=== PATIENT | female | born 1965 | race Caucasian/White ===

== ENCOUNTER 2016-11-10 18:29 | Emergency (ER) | payer MEDICARE ==
[2016-11-10] MEDS ORDERED: Metoclopramide IV* 5 MG/ML 2 ML VIAL IV ONE (19:20)
[2016-11-10] MEDS ORDERED: Ketorolac INJ* 30 MG/ML 1 ML VIAL IV ONE (19:20)
[2016-11-10] MEDS ORDERED: NS 0.9% 1000 ML* 1,000 ML IV ONE (19:20)
[2016-11-10] MEDS ORDERED: diPHENhydraMINE IV* 50 MG/ML 1 ml VIAL (BENADRYL) IV ONE (19:20)
[2016-11-10 19:30] LABS: Urine Bilirubin Negative (Negative); Urine Glucose Negative (Negative); Urine Nitrite Negative (Negative)
--- NOTE | 2016-11-10 19:47 | RAD ---
HISTORY: Headache COMPARISONS: September 25, 2015 TECHNIQUE: Multiple contiguous axial CT scans were obtained of the head without intravenous contrast. FINDINGS: HEMORRHAGE/INFARCT: There is no hemorrhage or acute infarct. MASSES/SHIFT: There is no mass or shift. EXTRA-AXIAL SPACES: There are no extra-axial fluid collections. SULCI AND VENTRICLES: The sulci and ventricles are normal in size and position for the patient's stated age. CEREBRUM: There is a dilated perivascular space of the left basal ganglia, stable. BRAINSTEM: There are no focal parenchymal abnormalities. CEREBELLUM: There are no focal parenchymal abnormalities. VESSELS: The vessels are grossly normal. PARANASAL SINUSES: The paranasal sinuses are clear. ORBITS: The orbits are unremarkable. BONES AND SOFT TISSUE: No bone or soft tissue abnormalities are noted. OTHER: None IMPRESSION: NO ACUTE INTRACRANIAL PATHOLOGY.
[2016-11-10 21:00] LABS: Hematocrit 43 % (35-47); Mean Corpuscular HGB Conc 33 g/dl (31-36); Mean Corpuscular Hemoglobin 27 pg (27-31); Mean Corpuscular Volume 82 fL (80-97); Mean Platelet Volume 9 um3 (7.4-10.4); Red Cell Distribution Width 15 % (10.5-15)
[2016-11-10 21:13] LABS: ALT 26 U/L (7-52); Albumin 3.9 g/dL (3.2-5.2); Alkaline Phosphatase 111 U/L (34-104); BUN/Creatinine Ratio 14.3 (8-20); Blood Urea Nitrogen 12 mg/dL (6-24); CO2 Carbon Dioxide 26 mmol/L (22-32); Calcium 9.4 mg/dL (8.6-10.3); Chloride 104 mmol/L (101-111); EGFR African American 91.6 (>60); EGFR Non-African American 71.2 (>60); Globulin 3.4 g/dL (2-4); Glucose 112 mg/dL (70-100); Sodium 137 mmol/L (133-145); Total Protein 7.3 g/dL (6.4-8.9)
[2016-11-10] MEDS ORDERED: Nalbuphine* 20 MG/ML 1 ML VIAL IV ONE (21:43)
[2016-11-10] MEDS ORDERED: Morphine INJ* 4 MG/ML 1 ML CARPUJECT IV ONE (21:45)
[2016-11-10 23:40] VITALS: BP 109/42
--- NOTE | 2016-11-10 23:44 | ED ---
José Miguel Benítez Billy, scribed for Darrion Ugalde MD on 11/10/16 at 1923 . Headache - HPI Summary HPI Summary: Patient is a 51 year-old female coming to [facility] presenting with a migraine headache since 1600 today. She states that her pain is very similar to previous migraines headaches, although today's episode also involves right-sided throbbing on the right side including pain behind the right eye. Positive nausea and vomiting. She denies blurred vision, neck pain, or fever. Symptoms are worse with lights and movement. Patient had eyelid surgery 1 week ago to remove excess eyelid skin. - History Of Current Complaint Chief Complaint: EDHeadache Stated Complaint: MIGRAINE Time Seen by Provider: 11/10/16 19:16 Hx Obtained From: Patient Hx Last Menstrual Period: IUD - NO PERIODS Onset/Duration: Gradual Onset, Started hours ago, Still Present Initially Headache Was: Moderate Currently Pain Is: Moderate Timing: Constant Character: Throbbing Aggravating Factor: Bright Lights, Other - movement Allevating Factors: Nothing Associated Signs And Symptoms: Nausea, Vomiting - Allergies/Home Medications Allergies/Adverse Reactions: Allergies Allergy/AdvReac Type Severity Reaction Status Date / Time Heparin Allergy Severe Swelling Verified 11/10/16 18:36 Hydromorphone [From Dilaudid] Allergy Severe Rash Verified 11/10/16 18:36 Fentanyl Allergy Rash Verified 11/10/16 20:20 Piperacillin [From Zosyn] AdvReac Severe Decreased Verified 11/10/16 18:36 WBC Sumatriptan [From Imitrex] AdvReac Severe Heart races Verified 11/10/16 18:36 Tazobactam [From Zosyn] AdvReac Severe Decreased Verified 11/10/16 18:36 WBC Morphine AdvReac Intermediate Itching Verified 11/10/16 18:36 Clindamycin AdvReac See Comment Verified 11/10/16 18:36 PMH/Surg Hx/FS Hx/Imm Hx Endocrine/Hematology History: Reports: Hx Diabetes Denies: Hx Anticoagulant Therapy, Hx Thyroid Disease Cardiovascular History: Reports: Hx Hypertension Denies: Hx Pacemaker/ICD Respiratory History: Denies: Hx Asthma, Hx Chronic Obstructive Pulmonary Disease (COPD), Other Respiratory Problems/Disorders GI History: Reports: Hx Crohn's Disease, Hx Gastroesophageal Reflux Disease Denies: Hx Ulcer Musculoskeletal History: Reports: Hx Arthritis - LOWER BACK Sensory History: Reports: Hx Contacts or Glasses Denies: Hx Hearing Aid Opthamlomology History: Reports: Hx Contacts or Glasses Psychiatric History: Reports: Hx Anxiety, Hx Depression Denies: Hx Panic Disorder, Hx of Violent Episodes Against Others - Cancer History Hx Chemotherapy: No Hx Radiation Therapy: No - Surgical History Surgery Procedure, Year, and Place: Appendectomy,. left foot tendon repair,. Gallbladder,. hernia repair,. bilateral carpal tunnel,. tonsilectomy,. Tendon repair L foot , Hx Anesthesia Reactions: No Infectious Disease History: No Infectious Disease History: Reports: Hx Shingles - 2014 Denies: Hx Clostridium Difficile, Hx Hepatitis, Hx Human Immunodeficiency Virus (HIV), Hx of Known/Suspected MRSA, Hx Tuberculosis, Hx Known/Suspected VRE , Hx Known/Suspected VRSA, History Other Infectious Disease, Traveled Outside the [place] in Last 30 Days - Family History Known Family History: Positive: Cardiac Disease, Hypertension, Diabetes - Social History Alcohol Use: None Hx Substance Use: No Substance Use Type: Reports: None Hx Tobacco Use: No Smoking Status (MU): Never Smoked Tobacco Review of Systems Negative: Fever Negative: Blurred Vision Positive: Vomiting, Nausea Positive: Headache All Other Systems Reviewed And Are Negative: Yes Physical Exam - Summary Physical Exam Summary: VITAL SIGNS: Reviewed. GENERAL: Patient is a well developed and nourished female who is lying comfortable in the stretcher. Patient is not in any acute respiratory distress. HEAD AND FACE: No signs of trauma. No ecchymosis, hematomas or skull depressions. No sinus tenderness. EYES: PERRLA, EOMI x 2, No injected conjunctiva, no nystagmus. No photophobia. EARS: Hearing grossly intact. Ear canals and tympanic membranes are within normal limits. MOUTH: Oropharynx within normal limits. NECK: Supple, trachea is midline, no adenopathy, no JVD, no carotid bruit, no c- spine tenderness, neck with full ROM. No meningeal signs, no Kernig's or brudzinskis signs. CHEST: Symmetric, no tenderness at palpation LUNGS: Clear to auscultation bilaterally. No wheezing or crackles. CVS: Regular rate and rhythm, S1 and S2 present, no murmurs or gallops appreciated. ABDOMEN: Soft, non-tender. No signs of distention. No rebound no guarding, and no masses palpated. Bowel sounds are normal. EXTREMITIES: FROM in all major joints, no edema, no cyanosis or clubbing. NEURO: Alert and oriented x 3. No acute neurological deficits. Speech is normal and follows commands. SKIN: Dry and warm Triage Information Reviewed: Yes Vital Signs On Initial Exam: Initial Vitals Temp Pulse Resp BP Pulse Ox 96.7 F 85 18 140/76 100 11/10/16 18:30 11/10/16 18:30 11/10/16 18:30 11/10/16 18:30 11/10/16 18:30 Vital Signs Reviewed: Yes Diagnostics - Vital Signs Vital Signs Temp Pulse Resp BP Pulse Ox 11/10/16 18:30 96.7 F 85 18 140/76 100 - Laboratory Lab Results: Lab Results 11/10/16 11/10/16 11/10/16 Range/Units 19:12 20:50 20:50 WBC 11.0 H (3.5-10.8) 10^3/ul RBC 5.20 (4.0-5.4) 10^6/ul Hgb 14.0 (12.0-16.0) g/dl Hct 43 (35-47) % MCV 82 (80-97) fL MCH 27 (27-31) pg MCHC 33 (31-36) g/dl RDW 15 (10.5-15) % Plt Count 329 (150-450) 10^3/ul MPV 9 (7.4-10.4) um3 Neut % (Auto) 55.0 (38-83) % Lymph % (Auto) 33.2 (25-47) % Moody % (Auto) 7.2 (1-9) % Eos % (Auto) 3.8 (0-6) % Baso % (Auto) 0.8 (0-2) % Absolute Neuts (auto) 6.0 (1.5-7.7) 10^3/ul Absolute Lymphs (auto) 3.6 (1.0-4.8) 10^3/ul Absolute Monos (auto) 0.8 (0-0.8) 10^3/ul Absolute Eos (auto) 0.4 (0-0.6) 10^3/ul Absolute Basos (auto) 0.1 (0-0.2) 10^3/ul Absolute Nucleated RBC 0.01 10^3/ul Nucleated RBC % 0.1 Sodium 137 (133-145) mmol/L Potassium TNP Chloride 104 (101-111) mmol/L Carbon Dioxide 26 (22-32) mmol/L Anion Gap TNP BUN 12 (6-24) mg/dL Creatinine 0.84 (0.51-0.95) mg/dL Est GFR ( Amer) 91.6 (>60) Est GFR (Non-Af Amer) 71.2 (>60) BUN/Creatinine Ratio 14.3 (8-20) Glucose 112 H (70-100) mg/dL Calcium 9.4 (8.6-10.3) mg/dL Total Bilirubin 0.30 (0.2-1.0) mg/dL AST TNP ALT 26 (7-52) U/L Alkaline Phosphatase 111 H (34-104) U/L Total Protein 7.3 (6.4-8.9) g/dL Albumin 3.9 (3.2-5.2) g/dL Globulin 3.4 (2-4) g/dL Albumin/Globulin Ratio 1.1 (1-3) Urine Color Yellow Urine Appearance Clear Urine pH 5.0 (5-9) Ur Specific [place] 1.015 (1.010-1.030) Urine Protein Negative (Negative) Urine Ketones Negative (Negative) Urine Blood Negative (Negative) Urine Nitrate Negative (Negative) Urine Bilirubin Negative (Negative) Urine Urobilinogen Negative (Negative) Ur Leukocyte Esterase Negative (Negative) Urine Glucose Negative (Negative) Result Diagrams: 11/10/16 20:50 11/10/16 20:50 Lab Statement: Any lab studies that have been ordered have been reviewed, and results considered in the medical decision making process. - CT brain CT Interpretation: No Acute Changes CT Interpretation Completed By: Radiologist Headache Course/Dx - Course Assessment/Plan: Patient is a 51 year-old female coming to [facility] presenting with a migraine headache since 1600 today. She states that her pain is very similar to previous migraines headaches, although today's episode also involves right-sided throbbing on the right side including pain behind the right eye. Positive nausea and vomiting. She denies blurred vision, neck pain, or fever. Symptoms are worse with lights and movement. Patient had eyelid surgery 1 week ago to remove excess eyelid skin. Bloodwork WNL except for WBC of 11.0. UA is negative for UTI. CT brain shows no intracranial pathology. In the ED course, patient was give IV fluids, Toradol, Reglan, Benadryl, nuBain, and morphine for pain. Afterwards, her symptoms improved. Patient is neurologically intact, therefore she will be discharged to follow up with PCP. She is A&Ox3, ambulating with steady gait, and tolerating PO. She was instructed to return to the ED with any developing fever, neck pain, photophobia, or increase in pain. She understands and agrees. - Diagnoses Differential Diagnosis/HQI/PQRI: CVA, TIA, Migraine, Sinus Headache, Temporal Arteritis, Tension Headache Provider Diagnoses: acute migraine headache Discharge - Discharge Plan Condition: Stable Disposition: HOME Patient Education Materials: Migraine Headache (ED) Referrals: Heath Reyes MD [Primary Care Provider] - The documentation as recorded by the José Miguel quiñonez Billy accurately reflects the service I personally performed and the decisions made by , Darrion Ugalde MD.
== END 2016-11-10 23:39 | disposition home or self-care (01) ==
LOC: ED 18:29
DX: G43.909 Migraine, unspecified, not intractable, without status migrainosus (principal); R11.2 Nausea with vomiting, unspecified
CPT/HCPCS: 36415; 70450; 80053; 81003; 85025; 96374; 96375; 99285; J1200; J1885; J2300; J2765

== ENCOUNTER 2016-11-15 17:42 | Emergency (ER) | payer MEDICARE ==
[2016-11-15] MEDS ORDERED: Morphine INJ* 4 MG/ML 1 ML CARPUJECT IV ONE ×3 (18:13→21:45)
[2016-11-15] MEDS ORDERED: NS 0.9% 1000 ML* 2,000 ML IV ONE (18:13)
[2016-11-15] MEDS ORDERED: Ondansetron INJ* 2 MG/ML VIAL IV ONE (18:13)
[2016-11-15 19:10] LABS: Hematocrit 41 % (35-47); Hemoglobin 13.3 g/dl (12.0-16.0); Mean Corpuscular HGB Conc 33 g/dl (31-36); Mean Corpuscular Hemoglobin 27 pg (27-31); Mean Corpuscular Volume 82 fL (80-97); Mean Platelet Volume 9 um3 (7.4-10.4); Red Blood Count 4.95 10^6/ul (4.0-5.4); Red Cell Distribution Width 14 % (10.5-15); White Blood Count 11.1 10^3/ul (3.5-10.8)
[2016-11-15 19:24] LABS: Albumin 4.3 g/dL (3.2-5.2); BUN/Creatinine Ratio 16.7 (8-20); C Reactive Protein 7.22 mg/L (< 5.00); EGFR African American 91.6 (>60); EGFR Non-African American 71.2 (>60); Globulin 3.3 g/dL (2-4); Potassium 3.6 mmol/L (3.5-5.0); Total Bilirubin 0.2 mg/dL (0.2-1.0); Total Protein 7.6 g/dL (6.4-8.9)
[2016-11-15] MEDS ORDERED: Iodixanol* (CONTRAST) 320 MG/ML 100 ML SDV IV ONE (19:45)
--- NOTE | 2016-11-15 21:11 | RAD ---
INDICATION: Right-sided abdominal pain COMPARISON: CT July 29, 2016 TECHNIQUE: Axial source images were obtained from the hemidiaphragms to the symphysis pubis following administration of oral and intravenous contrast. 111 mL Visipaque 320 was utilized. Coronal and sagittal reconstructed images were acquired. Lung bases: The lung bases are clear. Liver: The liver is normal in size. There is hepatic steatosis. There are no masses. There is no ductal dilatation. Gallbladder: Cholecystectomy. Spleen: The spleen is normal in size. There are no masses. Pancreas: There is no focal pancreatic mass or ductal dilatation. Adrenal glands: There is no evidence of adrenal mass. Kidneys: The kidneys are normal in size and position. There are prompt nephrograms and there is prompt excretion bilaterally. There are no renal parenchymal masses. There is a 6 mm, nonobstructive, midpole left renal calculus, unchanged Adenopathy: There is no evidence of adenopathy by size criteria. Fluid collections: There are no free or localized fluid collections. Vessels:There are no significant atherosclerotic changes involving the aorta. There is no focal aneurysm. The iliac vessels are normal in caliber. The IVC appears normal. GI tract: There are no acute CT bowel findings. There is no obstruction. The stomach and small bowel appear normal. The lower GI tract is normal. The cecum, ileocecal valve, and terminal ileum appear normal. There is appendectomy. Pelvic organs: The uterus and adnexa appear normal. There is an IUD in place Bladder: There is bladder wall thickening, unchanged.. Abdominal and pelvic soft tissues: There are are subcutaneous soft tissue changes in the gluteal regions perhaps related to prior subcutaneous injections. Osseous structures: There are no acute osseous findings. Other: None IMPRESSION: 1. No acute CT findings. No mass or inflammatory changes. 2. Hepatic steatosis 3. Cholecystectomy. Appendectomy. 4. IUD. 5. Bladder wall thickening, unchanged
[2016-11-15 21:35] LABS: Urine Bilirubin Negative (Negative); Urine Glucose Negative (Negative); Urine Nitrite Negative (Negative)
[2016-11-15] MEDS ORDERED: oxyCODONE TAB* 5 MG TAB PO ONE (21:45)
--- NOTE | 2016-11-15 21:51 | ED ---
Wil Benítez Janilya, scribed for Aniceto Collins MD on 11/15/16 at 1755 . Abdominal Pain/Female - HPI Summary HPI Summary: A 51 y/o female came in [place] [facility] presenting w/ a gradual onset of constant RLQ pain starting today at approx 1300 or 1400. Severity rated 9/10. Pain does not radiate to the back. Pt has baseline abd pain of 3/10 severity. Pt is usually on morphine for pain management of 30 mg twice a day. However, the morphine has not brought any alleviation to the exacerbation of this baseline abd pain. Pt states she has had similar worsening of her abd pain before. Pt reports nausea and runny stool for the past 3 days. However, pt also has PMHx of Crohns disease , and the runny stool might be due to flare ups. There is also change in appetite today. Pt denies fever, dysuria. PMHx kidney stone PSHx hernia, appendectomy, gallbladder removal. - History of Current Complaint Chief Complaint: EDAbdPain Stated Complaint: ABD PAIN Hx Obtained From: Patient Hx Last Menstrual Period: IUD - NO PERIODS Onset/Duration: Gradual Onset, Lasting Hours, Still Present Timing: Constant Severity Initially: Moderate Severity Currently: Moderate Pain Intensity: 9 Pain Scale Used: 0-10 Numeric Location: Discrete At: RLQ Radiates: No Aggravating Factor(s): Nothing Alleviating Factor(s): Nothing Associated Signs and Symptoms: Positive: Nausea, Other: - runny stool. Negative : Fever, Urinary Symptoms Allergies/Adverse Reactions: Allergies Allergy/AdvReac Type Severity Reaction Status Date / Time Heparin Allergy Severe Swelling Verified 11/15/16 17:46 Hydromorphone [From Dilaudid] Allergy Severe Rash Verified 11/15/16 17:46 Fentanyl Allergy Rash Verified 11/15/16 17:46 Piperacillin [From Zosyn] AdvReac Severe Decreased Verified 11/15/16 17:46 WBC Sumatriptan [From Imitrex] AdvReac Severe Heart races Verified 11/15/16 17:46 Tazobactam [From Zosyn] AdvReac Severe Decreased Verified 11/15/16 17:46 WBC Morphine AdvReac Intermediate Itching Verified 11/15/16 17:46 Clindamycin AdvReac See Comment Verified 11/15/16 17:46 PMH/Surg Hx/FS Hx/Imm Hx Previously Healthy: Yes Endocrine/Hematology History: Reports: Hx Diabetes Denies: Hx Anticoagulant Therapy, Hx Thyroid Disease Cardiovascular History: Reports: Hx Hypertension Denies: Hx Pacemaker/ICD Respiratory History: Denies: Hx Asthma, Hx Chronic Obstructive Pulmonary Disease (COPD), Other Respiratory Problems/Disorders GI History: Reports: Hx Crohn's Disease, Hx Gastroesophageal Reflux Disease Denies: Hx Ulcer Musculoskeletal History: Reports: Hx Arthritis - LOWER BACK Sensory History: Reports: Hx Contacts or Glasses Denies: Hx Hearing Aid Opthamlomology History: Reports: Hx Contacts or Glasses Psychiatric History: Reports: Hx Anxiety, Hx Depression Denies: Hx Panic Disorder, Hx of Violent Episodes Against Others - Cancer History Hx Chemotherapy: No Hx Radiation Therapy: No - Surgical History Surgery Procedure, Year, and Place: Appendectomy,. left foot tendon repair,. Gallbladder,. hernia repair,. bilateral carpal tunnel,. tonsilectomy,. Tendon repair L foot , Hx Anesthesia Reactions: No Infectious Disease History: No Infectious Disease History: Reports: Hx Shingles - 2014 Denies: Hx Clostridium Difficile, Hx Hepatitis, Hx Human Immunodeficiency Virus (HIV), Hx of Known/Suspected MRSA, Hx Tuberculosis, Hx Known/Suspected VRE , Hx Known/Suspected VRSA, History Other Infectious Disease, Traveled Outside the [place] in Last 30 Days - Family History Known Family History: Positive: Cardiac Disease, Hypertension, Diabetes - Social History Alcohol Use: None Hx Substance Use: No Substance Use Type: Reports: None Hx Tobacco Use: No Smoking Status (MU): Never Smoked Tobacco Review of Systems Negative: Fever Positive: Abdominal Pain, Nausea, Other - runny stool Negative: dysuria All Other Systems Reviewed And Are Negative: Yes Physical Exam Triage Information Reviewed: Yes Vital Signs On Initial Exam: Initial Vitals Temp Pulse Resp BP Pulse Ox 97.3 F 106 16 143/73 100 11/15/16 17:46 11/15/16 17:46 11/15/16 17:46 11/15/16 17:46 11/15/16 17:46 Vital Signs Reviewed: Yes Appearance: Positive: Well-Appearing, No Pain Distress Skin: Positive: Warm, Skin Color Reflects Adequate Perfusion, Dry Head/Face: Positive: Normal Head/Face Inspection Eyes: Positive: EOMI, JAIME ENT: Positive: Normal ENT inspection Neck: Positive: Supple, Nontender Respiratory/Lung Sounds: Positive: Clear to Auscultation, Breath Sounds Present Cardiovascular: Positive: RRR Abdomen Description: Positive: Soft. Negative: Nontender - mild to moderate abd pain, tenderness in RLQ Bowel Sounds: Positive: Hypoactive Musculoskeletal: Positive: Normal, Strength/ROM Intact Neurological: Positive: Normal, Sensory/Motor Intact, Alert, Oriented to Person Place, Time Psychiatric: Positive: Affect/Mood Appropriate Diagnostics - Vital Signs Vital Signs Temp Pulse Resp BP Pulse Ox 11/15/16 17:46 97.3 F 106 16 143/73 100 - Laboratory Lab Results: Lab Results 11/15/16 11/15/16 11/15/16 Range/Units 18:55 18:55 18:55 WBC 11.1 H (3.5-10.8) 10^3/ul RBC 4.95 (4.0-5.4) 10^6/ul Hgb 13.3 (12.0-16.0) g/dl Hct 41 (35-47) % MCV 82 (80-97) fL MCH 27 (27-31) pg MCHC 33 (31-36) g/dl RDW 14 (10.5-15) % Plt Count 293 (150-450) 10^3/ul MPV 9 (7.4-10.4) um3 Neut % (Auto) 56.4 (38-83) % Lymph % (Auto) 32.2 (25-47) % Peach % (Auto) 6.4 (1-9) % Eos % (Auto) 3.8 (0-6) % Baso % (Auto) 1.2 (0-2) % Absolute Neuts (auto) 6.3 (1.5-7.7) 10^3/ul Absolute Lymphs (auto) 3.6 (1.0-4.8) 10^3/ul Absolute Monos (auto) 0.7 (0-0.8) 10^3/ul Absolute Eos (auto) 0.4 (0-0.6) 10^3/ul Absolute Basos (auto) 0.1 (0-0.2) 10^3/ul Absolute Nucleated RBC 0 10^3/ul Nucleated RBC % 0 INR (Anticoag Therapy) 0.86 L (0.89-1.11) APTT 28.5 (26.0-36.3) seconds Sodium 137 (133-145) mmol/L Potassium 3.6 (3.5-5.0) mmol/L Chloride 104 (101-111) mmol/L Carbon Dioxide 25 (22-32) mmol/L Anion Gap 8 (2-11) mmol/L BUN 14 (6-24) mg/dL Creatinine 0.84 (0.51-0.95) mg/dL Est GFR ( Amer) 91.6 (>60) Est GFR (Non-Af Amer) 71.2 (>60) BUN/Creatinine Ratio 16.7 (8-20) Glucose 110 H (70-100) mg/dL Lactic Acid (0.5-2.0) mmol/L Calcium 10.0 (8.6-10.3) mg/dL Total Bilirubin 0.20 (0.2-1.0) mg/dL AST 17 (13-39) U/L ALT 20 (7-52) U/L Alkaline Phosphatase 111 H (34-104) U/L C-Reactive Protein 7.22 H (< 5.00) mg/L Total Protein 7.6 (6.4-8.9) g/dL Albumin 4.3 (3.2-5.2) g/dL Globulin 3.3 (2-4) g/dL Albumin/Globulin Ratio 1.3 (1-3) Lipase 82 (11.0-82.0) U/L Urine Color Urine Appearance Urine pH (5-9) Ur Specific [place] (1.010-1.030) Urine Protein (Negative) Urine Ketones (Negative) Urine Blood (Negative) Urine Nitrate (Negative) Urine Bilirubin (Negative) Urine Urobilinogen (Negative) Ur Leukocyte Esterase (Negative) Urine Glucose (Negative) 11/15/16 11/15/16 Range/Units 18:55 21:25 WBC (3.5-10.8) 10^3/ul RBC (4.0-5.4) 10^6/ul Hgb (12.0-16.0) g/dl Hct (35-47) % MCV (80-97) fL MCH (27-31) pg MCHC (31-36) g/dl RDW (10.5-15) % Plt Count (150-450) 10^3/ul MPV (7.4-10.4) um3 Neut % (Auto) (38-83) % Lymph % (Auto) (25-47) % Peach % (Auto) (1-9) % Eos % (Auto) (0-6) % Baso % (Auto) (0-2) % Absolute Neuts (auto) (1.5-7.7) 10^3/ul Absolute Lymphs (auto) (1.0-4.8) 10^3/ul Absolute Monos (auto) (0-0.8) 10^3/ul Absolute Eos (auto) (0-0.6) 10^3/ul Absolute Basos (auto) (0-0.2) 10^3/ul Absolute Nucleated RBC 10^3/ul Nucleated RBC % INR (Anticoag Therapy) (0.89-1.11) APTT (26.0-36.3) seconds Sodium (133-145) mmol/L Potassium (3.5-5.0) mmol/L Chloride (101-111) mmol/L Carbon Dioxide (22-32) mmol/L Anion Gap (2-11) mmol/L BUN (6-24) mg/dL Creatinine (0.51-0.95) mg/dL Est GFR ( Amer) (>60) Est GFR (Non-Af Amer) (>60) BUN/Creatinine Ratio (8-20) Glucose (70-100) mg/dL Lactic Acid 1.3 (0.5-2.0) mmol/L Calcium (8.6-10.3) mg/dL Total Bilirubin (0.2-1.0) mg/dL AST (13-39) U/L ALT (7-52) U/L Alkaline Phosphatase (34-104) U/L C-Reactive Protein (< 5.00) mg/L Total Protein (6.4-8.9) g/dL Albumin (3.2-5.2) g/dL Globulin (2-4) g/dL Albumin/Globulin Ratio (1-3) Lipase (11.0-82.0) U/L Urine Color Colorless Urine Appearance Clear Urine pH 5.0 (5-9) Ur Specific [place] 1.003 L (1.010-1.030) Urine Protein Negative (Negative) Urine Ketones Negative (Negative) Urine Blood Negative (Negative) Urine Nitrate Negative (Negative) Urine Bilirubin Negative (Negative) Urine Urobilinogen Negative (Negative) Ur Leukocyte Esterase Negative (Negative) Urine Glucose Negative (Negative) Result Diagrams: 11/15/16 18:55 11/15/16 18:55 Lab Statement: Any lab studies that have been ordered have been reviewed, and results considered in the medical decision making process. - CT abd/pel CT Interpretation: Positive (See Comments) - IMPRESSION: 1. No acute CT findings. No mass or inflammatory changes. 2. Hepatic steatosis 3. Cholecystectomy. Appendectomy. 4. IUD. 5. Bladder wall thickening, unchanged CT Interpretation Completed By: Radiologist Abdominal Pain Fem Course/Dx - Course Course Of Treatment: DISCUSSED RESULTS WITH PATIENT. THIS PAIN IS SIMILAR TO HER CHRONIC RECURRENT ABD PAIN. RX OXYCODONE AND F/U WITH HER DOCTOR TOMORROW. RETURN IF WORSE. DISCHARGE HOME STABLE. - Diagnoses Provider Diagnoses: Abdominal pain Discharge - Discharge Plan Condition: Stable Disposition: HOME Prescriptions: oxyCODONE TAB* [Roxycodone TAB 5 mg*] 5 mg PO Q4H PRN #20 tab MDD 6 PRN Reason: Pain Patient Education Materials: Abdominal Pain (ED) Referrals: Heath Reyes MD [Primary Care Provider] - Additional Instructions: FOLLOW UP WITH YOUR DOCTOR TOMORROW, 11/16/16. RETURN TO THE EMERGENCY DEPARTMENT FOR ANY WORSENING OF YOUR CONDITION; PAIN, FEVER, YOU FEEL ILL OR QUESTIONS OR CONCERNS. The documentation as recorded by the Wil quiñonez Janilya accurately reflects the service I personally performed and the decisions made by me, Aniceto Collins MD.
[2016-11-15 22:12] VITALS: BP 137/61
== END 2016-11-15 21:58 | disposition home or self-care (01) ==
LOC: ED 17:42
DX: R10.31 Right lower quadrant pain (principal); R11.0 Nausea
CPT/HCPCS: 36415; 74177; 80053; 81003; 83605; 83690; 85025; 85610; 85730; 86140; 96374; 96375; 99283; A9270-GY; J2270; J2405; Q9967

== ENCOUNTER 2017-01-06 17:28 | Emergency (ER) | payer MEDICARE ==
[2017-01-06] MEDS ORDERED: Metoclopramide IV* 5 MG/ML 2 ML VIAL IV ONE (19:46)
[2017-01-06] MEDS ORDERED: Ketorolac INJ* 30 MG/ML 1 ML VIAL IV ONE (19:46)
[2017-01-06] MEDS ORDERED: diPHENhydraMINE IV* 50 MG/ML 1 ml VIAL (BENADRYL) IV ONE (19:46)
[2017-01-06] MEDS ORDERED: NS 0.9% 1000 ML* 1,000 ML IV ONE (19:46)
--- NOTE | 2017-01-06 20:06 | ED ---
Earnest Benítez Anna, scribed for Wojciech Caro MD on 01/06/17 at 1951 . Headache - HPI Summary HPI Summary: Patient is a 51 y/o female coming to [facility] presenting with a constant DEVLIN that began yesterday. She describes the severity of the pain as 10/10. She took Oxycodone yesterday and Tylenol today, which did not alleviate the pain. The pain is exacerbated by light. Her mother yesterday, and she reports having lots of stress as a result. She has not been eating normally and has felt intermittently nauseous. She reports that when she has a migraine, she often ends up in the ED. Her most recent visit for a migraine was 11/10/2016. At that time, she was given IV fluids, Toradol, Reglan, Benadryl, nuBain, and morphine for pain, which improved her symptoms. - History Of Current Complaint Chief Complaint: EDHeadache Stated Complaint: MIGRAINE Time Seen by Provider: 01/06/17 19:41 Hx Obtained From: Patient, Family/Manager Paid - Accompanied by family Hx Last Menstrual Period: IUD - NO PERIODS Onset/Duration: Started days ago, Still Present Initially Headache Was: Moderate Currently Pain Is: Moderate Timing: Constant Allevating Factors: Nothing - Allergies/Home Medications Allergies/Adverse Reactions: Allergies Allergy/AdvReac Type Severity Reaction Status Date / Time Heparin Allergy Severe Swelling Verified 01/06/17 17:42 Hydromorphone [From Dilaudid] Allergy Severe Rash Verified 01/06/17 17:42 Fentanyl Allergy Rash Verified 01/06/17 17:42 Piperacillin [From Zosyn] AdvReac Severe Decreased Verified 01/06/17 17:42 WBC Sumatriptan [From Imitrex] AdvReac Severe Heart races Verified 01/06/17 17:42 Tazobactam [From Zosyn] AdvReac Severe Decreased Verified 01/06/17 17:42 WBC Morphine AdvReac Intermediate Itching Verified 01/06/17 17:42 Clindamycin AdvReac See Comment Verified 01/06/17 17:42 PMH/Surg Hx/FS Hx/Imm Hx Endocrine/Hematology History: Reports: Hx Diabetes Denies: Hx Anticoagulant Therapy, Hx Thyroid Disease Cardiovascular History: Reports: Hx Hypertension Denies: Hx Pacemaker/ICD Respiratory History: Denies: Hx Asthma, Hx Chronic Obstructive Pulmonary Disease (COPD), Other Respiratory Problems/Disorders GI History: Reports: Hx Crohn's Disease, Hx Gastroesophageal Reflux Disease Denies: Hx Ulcer Musculoskeletal History: Reports: Hx Arthritis - LOWER BACK Sensory History: Reports: Hx Contacts or Glasses Denies: Hx Hearing Aid Opthamlomology History: Reports: Hx Contacts or Glasses Psychiatric History: Reports: Hx Anxiety, Hx Depression Denies: Hx Panic Disorder, Hx of Violent Episodes Against Others - Cancer History Hx Chemotherapy: No Hx Radiation Therapy: No - Surgical History Surgery Procedure, Year, and Place: Appendectomy,. left foot tendon repair,. Gallbladder,. hernia repair,. bilateral carpal tunnel,. tonsilectomy,. Tendon repair L foot , Hx Anesthesia Reactions: No Infectious Disease History: No Infectious Disease History: Reports: Hx Shingles - 2014 Denies: Hx Clostridium Difficile, Hx Hepatitis, Hx Human Immunodeficiency Virus (HIV), Hx of Known/Suspected MRSA, Hx Tuberculosis, Hx Known/Suspected VRE , Hx Known/Suspected VRSA, History Other Infectious Disease, Traveled Outside the [place] in Last 30 Days - Family History Known Family History: Positive: Cardiac Disease, Hypertension, Diabetes - Social History Alcohol Use: Rare Hx Substance Use: No Substance Use Type: Reports: None Hx Tobacco Use: No Smoking Status (MU): Never Smoked Tobacco Review of Systems Positive: Photophobia Positive: Nausea Positive: Headache Psychological: Other - Stress All Other Systems Reviewed And Are Negative: Yes Physical Exam Triage Information Reviewed: Yes Vital Signs On Initial Exam: Initial Vitals Temp Pulse Resp BP Pulse Ox 98.5 F 108 17 156/78 98 01/06/17 17:39 01/06/17 17:39 01/06/17 17:39 01/06/17 17:39 01/06/17 17:39 Vital Signs Reviewed: Yes Appearance: Positive: Well-Appearing, Pain Distress - mild discomfort Skin: Positive: Warm Head/Face: Positive: Normal Head/Face Inspection Eyes: Positive: EOMI, JAIME, Conjunctiva Clear ENT: Positive: Hearing grossly normal Neck: Positive: Supple Respiratory/Lung Sounds: Positive: Clear to Auscultation, Breath Sounds Present Cardiovascular: Positive: RRR Abdomen Description: Positive: Nontender, Soft Bowel Sounds: Positive: Present Musculoskeletal: Positive: Strength/ROM Intact Neurological: Positive: Sensory/Motor Intact, Alert, Oriented to Person Place, Time, CN Intact II-III, Normal Gait Psychiatric: Positive: Affect/Mood Appropriate Diagnostics - Vital Signs Vital Signs Temp Pulse Resp BP Pulse Ox 01/06/17 18:50 98.4 F 103 17 140/77 100 01/06/17 17:42 98.5 F 108 17 156/78 98 01/06/17 17:39 98.5 F 108 17 156/78 98 - Laboratory Result Diagrams: 01/06/17 20:35 01/06/17 20:35 Lab Statement: Any lab studies that have been ordered have been reviewed, and results considered in the medical decision making process. Re-Evaluation - Re-Evaluation First Eval Change: Improved Headache Course/Dx - Course Assessment/Plan: Patient is a 51 y/o female coming to [facility] presenting with a constant DEVLIN that began yesterday. She describes the severity of the pain as 10/ 10. She took Oxycodone yesterday and Tylenol today, which did not alleviate the pain. The pain is exacerbated by light. Her mother yesterday, and she reports having lots of stress as a result. She has not been eating normally and has felt intermittently nauseous. She reports that when she has a migraine, she often ends up in the ED. Her most recent visit for a migraine was 2016. At that time, she was given IV fluids, Toradol, Reglan, Benadryl, nuBain, and morphine for pain, which improved her symptoms. Today, in the ED course, the patient was given fluids, Toradol, Reglan, and Benadryl. Patients pain was not alleviated. She then received Morphine. Labs reveal WBC of 15.9, RDW of 16, and glucose of 125. Patient will be discharged with follow up from primary care physician. Patient is agreeable with plan. - Diagnoses Provider Diagnoses: Migraine Discharge - Discharge Plan Condition: Stable Disposition: HOME Patient Education Materials: Migraine Headache (ED) Referrals: Heath Reyes MD [Primary Care Provider] - Additional Instructions: Follow up with your primary care provider within 48 hours. Return to the Emergency Department for new or worsening symptoms. The documentation as recorded by the Earnest quiñoenz Anna accurately reflects the service I personally performed and the decisions made by , Wojciech Caro MD.
[2017-01-06 20:45] LABS: Hematocrit 40 % (35-47); Hemoglobin 13.3 g/dl (12.0-16.0); Mean Corpuscular HGB Conc 33 g/dl (31-36); Mean Corpuscular Hemoglobin 27 pg (27-31); Mean Corpuscular Volume 81 fL (80-97); Red Blood Count 4.97 10^6/ul (4.0-5.4); Red Cell Distribution Width 16 % (10.5-15); White Blood Count 15.9 10^3/ul (3.5-10.8)
[2017-01-06 20:51] LABS: Comments Flag Yes
[2017-01-06 21:16] LABS: ALT 23 U/L (7-52); Albumin 4.4 g/dL (3.2-5.2); Alkaline Phosphatase 86 U/L (34-104); BUN/Creatinine Ratio 10.7 (8-20); Blood Urea Nitrogen 9 mg/dL (6-24); CO2 Carbon Dioxide 20 mmol/L (22-32); Calcium 9.4 mg/dL (8.6-10.3); Chloride 103 mmol/L (101-111); EGFR African American 91.6 (>60); EGFR Non-African American 71.2 (>60); Globulin 3.2 g/dL (2-4); Glucose 125 mg/dL (70-100); Sodium 135 mmol/L (133-145); Total Protein 7.6 g/dL (6.4-8.9)
[2017-01-06 21:33] LABS: Add Diff/Slide Review? Slide Review Added
[2017-01-06 21:44] LABS: Mean Platelet Volume 9 um3 (7.4-10.4)
[2017-01-06] MEDS ORDERED: Morphine INJ* 4 MG/ML 1 ML SYRINGE IV ONE (22:07)
[2017-01-06] MEDS ORDERED: Aspirin EC Low Dose* 81 MG TAB.EC PO ONE (22:42)
[2017-01-07] MEDS ORDERED: Morphine INJ* 4 MG/ML 1 ML SYRINGE IV ONE (00:06)
[2017-01-07 00:59] VITALS: BP 130/61
== END 2017-01-07 00:40 | disposition home or self-care (01) ==
LOC: ED 17:28
DX: G43.909 Migraine, unspecified, not intractable, without status migrainosus (principal); H53.149 Visual discomfort, unspecified; R11.0 Nausea
CPT/HCPCS: 36415; 80053; 85025; 96374; 96375; 99283; A9270-GY; J1200; J1885; J2270

== ENCOUNTER 2017-01-12 17:12 | Emergency (ER) | payer MEDICARE ==
[2017-01-12] MEDS ORDERED: Ketorolac INJ* 30 MG/ML 1 ML VIAL IV ONE (18:42)
[2017-01-12] MEDS ORDERED: diPHENhydraMINE IV* 50 MG/ML 1 ml VIAL (BENADRYL) IV ONE (18:42)
[2017-01-12] MEDS ORDERED: NS 0.9% 1000 ML* 1,000 ML IV ONE (18:42)
[2017-01-12] MEDS ORDERED: Metoclopramide IV* 5 MG/ML 2 ML VIAL IV ONE (18:42)
--- NOTE | 2017-01-12 18:56 | ED ---
Headache - HPI Summary HPI Summary: Patient presents with her typical migraine that is triggered due to stress related to her mother's three days ago. She has been handling her mother' s affairs and cleaning out the home. The burial was today. She has tried Tylenol without relief and after three hours of worsening light and sound sensitivity she came to the ED. She denies fever, chills, neck pain, neurological deficits, or vomiting. She does feel nauseous. Her pain is on the right front forehead. Patient states morphine typically takes her headache away. - History Of Current Complaint Chief Complaint: EDHeadache Stated Complaint: MIGRAINE Time Seen by Provider: 01/12/17 18:28 Hx Obtained From: Patient Hx Last Menstrual Period: IUD - NO PERIODS Onset/Duration: Gradual Onset Initially Headache Was: Moderate Currently Pain Is: Severe Timing: Constant Character: Sharp, Migraine Location of Headache: Frontal Aggravating Factor: Bright Lights Allevating Factors: Nothing Associated Signs And Symptoms: Nausea Related History: Similar Episode/DX As: - past migraines - Allergies/Home Medications Allergies/Adverse Reactions: Allergies Allergy/AdvReac Type Severity Reaction Status Date / Time Heparin Allergy Severe Swelling Verified 01/10/17 13:29 Hydromorphone [From Dilaudid] Allergy Severe Rash Verified 01/10/17 13:29 Fentanyl Allergy Rash Verified 01/10/17 13:29 Piperacillin [From Zosyn] AdvReac Severe Decreased Verified 01/10/17 13:29 WBC Sumatriptan [From Imitrex] AdvReac Severe Heart races Verified 01/10/17 13:29 Tazobactam [From Zosyn] AdvReac Severe Decreased Verified 01/10/17 13:29 WBC Morphine AdvReac Intermediate Itching Verified 01/10/17 13:29 Clindamycin AdvReac See Comment Verified 01/10/17 13:29 PMH/Surg Hx/FS Hx/Imm Hx Endocrine/Hematology History: Reports: Hx Diabetes Denies: Hx Anticoagulant Therapy, Hx Thyroid Disease Cardiovascular History: Reports: Hx Hypertension Denies: Hx Pacemaker/ICD Respiratory History: Denies: Hx Asthma, Hx Chronic Obstructive Pulmonary Disease (COPD), Other Respiratory Problems/Disorders GI History: Reports: Hx Crohn's Disease, Hx Gastroesophageal Reflux Disease Denies: Hx Ulcer Musculoskeletal History: Reports: Hx Arthritis - LOWER BACK Sensory History: Reports: Hx Contacts or Glasses Denies: Hx Hearing Aid Opthamlomology History: Reports: Hx Contacts or Glasses Psychiatric History: Reports: Hx Anxiety, Hx Depression Denies: Hx Panic Disorder, Hx of Violent Episodes Against Others - Cancer History Hx Chemotherapy: No Hx Radiation Therapy: No - Surgical History Surgery Procedure, Year, and Place: Appendectomy,. left foot tendon repair,. Gallbladder,. hernia repair,. bilateral carpal tunnel,. tonsilectomy,. Tendon repair L foot , Hx Anesthesia Reactions: No Infectious Disease History: No Infectious Disease History: Reports: Hx Shingles - 2014 Denies: Hx Clostridium Difficile, Hx Hepatitis, Hx Human Immunodeficiency Virus (HIV), Hx of Known/Suspected MRSA, Hx Tuberculosis, Hx Known/Suspected VRE , Hx Known/Suspected VRSA, History Other Infectious Disease, Traveled Outside the [place] in Last 30 Days - Family History Known Family History: Positive: Cardiac Disease, Hypertension, Diabetes - Social History Occupation: Unemployed Lives: With Family Alcohol Use: Occasionally Hx Substance Use: No Substance Use Type: Reports: None Hx Tobacco Use: No Smoking Status (MU): Never Smoked Tobacco Review of Systems Negative: Fever Positive: Photophobia. Negative: Blurred Vision, Diplopia, Drainage Positive: Headache. Negative: Weakness, Paresthesia, Numbness All Other Systems Reviewed And Are Negative: Yes Physical Exam Triage Information Reviewed: Yes Vital Signs On Initial Exam: Initial Vitals Temp Pulse Resp BP Pulse Ox 97.8 F 99 16 157/73 100 01/12/17 17:13 01/12/17 17:13 01/12/17 17:13 01/12/17 17:13 01/12/17 17:13 Vital Signs Reviewed: Yes Appearance: Positive: Well-Appearing, Pain Distress, Obese Skin: Positive: Warm, Skin Color Reflects Adequate Perfusion, Dry, Soft Head/Face: Positive: Normal Head/Face Inspection Eyes: Positive: EOMI, JAIME, Conjunctiva Clear ENT: Positive: Hearing grossly normal, Pharynx normal, TMs normal Neck: Positive: Supple, Nontender, No Lymphadenopathy Respiratory/Lung Sounds: Positive: Clear to Auscultation, Breath Sounds Present Cardiovascular: Positive: RRR Musculoskeletal: Negative: Edema Left, Edema Right Neurological: Positive: Sensory/Motor Intact, Alert, Oriented to Person Place, Time, CN Intact II-III, NV Bundle Intact Distally, Normal Gait Psychiatric: Positive: Affect/Mood Appropriate AVPU Assessment: Alert Diagnostics - Vital Signs Vital Signs Temp Pulse Resp BP Pulse Ox 01/12/17 17:13 97.8 F 99 16 157/73 100 - Laboratory Lab Statement: Any lab studies that have been ordered have been reviewed, and results considered in the medical decision making process. Re-Evaluation - Re-Evaluation First Eval Re-Evaluation Time: 21:30 Change: Unchanged - no improvement of pain Second Eval Re-Evaluation Time: 22:30 Change: Improved Comment: Patient's headache has improved. Headache Course/Dx - Diagnoses Differential Diagnosis/HQI/PQRI: CVA, TIA, Migraine, Sinus Headache, Tension Headache, Viral Syndrome Provider Diagnoses: Migraine Discharge - Discharge Plan Condition: Stable Disposition: HOME Patient Education Materials: Migraine Headache (ED) Referrals: Heath Reyes MD [Primary Care Provider] - Additional Instructions: Please follow-up with Dr. Reyes next week to discuss possible changes to your migraine management routine. Drink extra fluids and get plenty of rest in this extra stressful period. Return to the emergency department if symptoms worsen.
[2017-01-12] MEDS ORDERED: Morphine INJ* 2 MG/ML 1 ML SYRINGE IV ONE (21:37)
[2017-01-12 22:56] VITALS: BP 134/93
== END 2017-01-12 22:55 | disposition home or self-care (01) ==
LOC: ED 17:12
DX: G43.909 Migraine, unspecified, not intractable, without status migrainosus (principal); R11.0 Nausea
CPT/HCPCS: 96374; 96375; 99283; J1200; J1885; J2270

== ENCOUNTER → 2017-02-19 14:35 | Emergency (ER) | payer MEDICARE ==
[~2017-02-19 14:35] MED LIST: HYDROmorphone* 1 MG/ML 1 ML SYR IM ONE; HYDROmorphone* 1 MG/ML 1 ML SYR ONE
[2017-02-19 14:44] VITALS: BP 121/60
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
== END | disposition home or self-care (01) ==
LOC: ED 14:35
DX: S90.31XA Contusion of right foot, initial encounter (principal); M79.671 Pain in right foot; X58.XXXA Exposure to other specified factors, initial encounter; Y93.9 Activity, unspecified; Y92.9 Unspecified place or not applicable
CPT/HCPCS: 96372; 99282; J1170

== ENCOUNTER 2017-05-23 12:45 | Emergency (ER) | payer MEDICARE ==
[2017-05-23 15:17] LABS: Urine Bilirubin Negative (Negative); Urine Glucose Negative (Negative); Urine Nitrite Negative (Negative)
[2017-05-23] MEDS ORDERED: Ketorolac INJ* 30 MG/ML 1 ML VIAL IV PUSH ONE (15:22)
[2017-05-23] MEDS ORDERED: NS 0.9% 1000 ML* 1,000 ML IV ONE (15:22)
[2017-05-23 15:48] LABS: Hematocrit 40 % (35-47); Hemoglobin 13.4 g/dl (12.0-16.0); Mean Corpuscular HGB Conc 33 g/dl (31-36); Mean Corpuscular Hemoglobin 28 pg (27-31); Mean Corpuscular Volume 83 fL (80-97); Mean Platelet Volume 8 um3 (7.4-10.4); Red Blood Count 4.86 10^6/ul (4.0-5.4); Red Cell Distribution Width 15 % (10.5-15); White Blood Count 8.1 10^3/ul (3.5-10.8)
[2017-05-23 16:05] LABS: Albumin 4.3 g/dL (3.2-5.2); BUN/Creatinine Ratio 15.1 (8-20); C Reactive Protein 6.5 mg/L (< 5.00); Calcium 9.2 mg/dL (8.6-10.3); EGFR African American 81.4 (>60); EGFR Non-African American 63.3 (>60); Globulin 3.3 g/dL (2-4); Potassium 3.6 mmol/L (3.5-5.0); Total Bilirubin 0.3 mg/dL (0.2-1.0); Total Protein 7.6 g/dL (6.4-8.9)
--- NOTE | 2017-05-23 16:14 | RAD ---
CLINICAL HISTORY: Right flank pain COMPARISON: November 15, 2016 TECHNIQUE: Multiple contiguous axial CT scans were obtained of the abdomen and pelvis, without intravenous contrast enhancement. Coronal and sagittal multiplanar reformations are submitted for review. Oral contrast was not administered. FINDINGS: The study is limited by the lack of intravenous contrast. This limits evaluation of the solid organs and vasculature. LUNG BASES: The lung bases are clear. LIVER: The liver is normal in shape, size, contour, and attenuation. BILE DUCTS: There is no intrahepatic or extrahepatic biliary dilatation. GALLBLADDER: The gallbladder is not visualized. Surgical clips are noted in the gallbladder fossa. PANCREAS: The pancreas is normal, without mass or ductal dilatation. SPLEEN: Normal in size and appearance. UPPER GI TRACT: Evaluation of the gastrointestinal tract is limited by incomplete gastric distention. The upper GI tract is unremarkable. SMALL BOWEL AND MESENTERY: The small bowel is normal in contour, course, and caliber. There is no obstruction or dilatation. COLON: The colon is normal in contour, course, caliber. There is no pericolonic inflammatory change. The appendix is not visualized. There is no inflammatory change within the right lower quadrant. There is postsurgical change consistent with the history of appendectomy. ADRENALS: Normal bilaterally. KIDNEYS: There is a nonobstructing 0.5 cm left renal calyceal stone similar to November 20, 2016. There is no hydronephrosis. BLADDER: The bladder is smooth in contour. PELVIC ORGANS: The uterus and adnexa are grossly normal for technique. An IUD is noted. AORTA: The aorta is normal. IVC: Unremarkable LYMPH NODES: There is no lymphadenopathy by size criteria. ABDOMINAL WALL: There is no evidence for abdominal wall hernia. BONES AND SOFT TISSUES: Degenerative changes are noted OTHER: None IMPRESSION: STABLE NONOBSTRUCTING LEFT RENAL CALYCEAL STONE. NO HYDRONEPHROSIS.
[2017-05-23] MEDS ORDERED: Morphine INJ* 2 MG/ML 1 ML SYRINGE IV ONE ×2 (16:19→19:19)
[2017-05-23] MEDS ORDERED: Cyclobenzaprine TAB* 10 MG PO ONE (16:30)
--- NOTE | 2017-05-23 17:23 | ED ---
Back Pain - HPI Summary HPI Summary: Patient presents to the ED with 9/10 right flank pain x 1 week which is intermittent, worse with position but not better with rest. She denies taking any medication to help aleve the pain. She notes to a history of UTI's, but denies any previous kidney stones or kidney infections. She denies fevers, sweats or chills. She denies new abdominal pain but endorses RLQ pain present for several years for which she has had multiple scan including MRI which showed no abnormal pathologies. Denies vaginal discharge, urinary frequency, hematuria or burning. She endorses some feelings of inability to completely void, which is new. She denies any chest pain, pressure, SOB, recent or new activity level which would explain back pain. Patient has an IUD in place for 3.5 years with no complications. Pain is worse with walking and standing and worse still with raising the right leg. She has been seen here frequently for various complaints of pain. - History of Current Complaint Chief Complaint: EDFlankPain Stated Complaint: RT FLANK/BACK PAIN Time Seen by Provider: 05/23/17 15:16 Hx Obtained From: Patient Hx Last Menstrual Period: IUD - NO PERIODS Onset/Duration: Sudden Onset Onset/Duration: Started Days Ago Timing: Intermittent Back Pain Location: Is Discrete @ - right flank Severity Initially: Moderate Severity Currently: Moderate Pain Intensity: 8 Pain Scale Used: 0-10 Numeric Character: Aching Aggravating Symptom(s): Movement, Lifting Alleviating Symptom(s): Nothing Associated Signs And Symptoms: Positive: Pain with Weight Bearing - Risk Factors AAA Risk Factors: Negative TAD Risk Factors: Negative Cauda Equina Risk Factors: Negative Epidural Abscess Risk Factors: Negative - Allergies/Home Medications Allergies/Adverse Reactions: Allergies Allergy/AdvReac Type Severity Reaction Status Date / Time Heparin Allergy Severe Swelling Verified 01/10/17 13:29 Hydromorphone [From Dilaudid] Allergy Severe Rash Verified 01/10/17 13:29 Fentanyl Allergy Rash Verified 01/10/17 13:29 Piperacillin [From Zosyn] AdvReac Severe Decreased Verified 01/10/17 13:29 WBC Sumatriptan [From Imitrex] AdvReac Severe Heart races Verified 01/10/17 13:29 Tazobactam [From Zosyn] AdvReac Severe Decreased Verified 01/10/17 13:29 WBC Morphine AdvReac Intermediate Itching Verified 01/10/17 13:29 Clindamycin AdvReac See Comment Verified 01/10/17 13:29 PMH/Surg Hx/FS Hx/Imm Hx Previously Healthy: Yes Endocrine/Hematology History: Reports: Hx Diabetes Denies: Hx Anticoagulant Therapy, Hx Thyroid Disease Cardiovascular History: Reports: Hx Hypertension Denies: Hx Pacemaker/ICD Respiratory History: Denies: Hx Asthma, Hx Chronic Obstructive Pulmonary Disease (COPD), Other Respiratory Problems/Disorders GI History: Reports: Hx Crohn's Disease, Hx Gastroesophageal Reflux Disease Denies: Hx Ulcer Musculoskeletal History: Reports: Hx Arthritis - LOWER BACK Sensory History: Reports: Hx Contacts or Glasses Denies: Hx Hearing Aid Opthamlomology History: Reports: Hx Contacts or Glasses Psychiatric History: Reports: Hx Anxiety, Hx Depression Denies: Hx Panic Disorder, Hx of Violent Episodes Against Others - Cancer History Hx Chemotherapy: No Hx Radiation Therapy: No - Surgical History Surgery Procedure, Year, and Place: Appendectomy,. left foot tendon repair,. Gallbladder,. hernia repair,. bilateral carpal tunnel,. tonsilectomy,. Tendon repair L foot , Hx Anesthesia Reactions: No - Immunization History Hx Pertussis Vaccination: No Immunizations Up to Date: Unable to Obtain/Confirm Infectious Disease History: No Infectious Disease History: Reports: Hx Shingles - 2014 Denies: Hx Clostridium Difficile, Hx Hepatitis, Hx Human Immunodeficiency Virus (HIV), Hx of Known/Suspected MRSA, Hx Tuberculosis, Hx Known/Suspected VRE , Hx Known/Suspected VRSA, History Other Infectious Disease, Traveled Outside the [place] in Last 30 Days - Family History Known Family History: Positive: Cardiac Disease, Hypertension, Diabetes - Social History Occupation: Employed Full-time Lives: With Family Alcohol Use: Occasionally Hx Substance Use: No Substance Use Type: Reports: None Hx Tobacco Use: No Smoking Status (MU): Never Smoked Tobacco Review of Systems Constitutional: Negative Eyes: Negative Cardiovascular: Negative Gastrointestinal: Negative Genitourinary: Negative Positive: no symptoms reported, see HPI Positive: Arthralgia - right sided flank pain Skin: Negative Neurological: Negative Psychological: Normal All Other Systems Reviewed And Are Negative: Yes Physical Exam Triage Information Reviewed: Yes Vital Signs On Initial Exam: Initial Vitals Temp Pulse Resp BP Pulse Ox 97.4 F 104 20 132/72 97 05/23/17 12:46 05/23/17 12:46 05/23/17 12:46 05/23/17 12:46 05/23/17 12:46 Vital Signs Reviewed: Yes Appearance: Positive: Well-Appearing, No Pain Distress Skin: Positive: Warm, Skin Color Reflects Adequate Perfusion Head/Face: Positive: Normal Head/Face Inspection Eyes: Positive: EOMI, JAIME, Conjunctiva Clear Neck: Positive: Nontender, No Lymphadenopathy Respiratory/Lung Sounds: Positive: Clear to Auscultation, Breath Sounds Present Cardiovascular: Positive: Normal, RRR Abdomen Description: Positive: Nontender, Soft, Other: - mcburneys point tenderness at baseline - present for many years Musculoskeletal: Positive: Pain @ - right flank - possible muscular Neurological: Positive: Speech Normal Psychiatric: Positive: Normal AVPU Assessment: Alert Diagnostics - Vital Signs Vital Signs Temp Pulse Resp BP Pulse Ox 05/23/17 14:52 97.9 F 91 16 123/71 97 05/23/17 12:46 97.4 F 104 20 132/72 97 - Laboratory Lab Results: Lab Results 05/23/17 05/23/17 05/23/17 Range/Units 13:38 15:41 15:41 WBC 8.1 (3.5-10.8) 10^3/ul RBC 4.86 (4.0-5.4) 10^6/ul Hgb 13.4 (12.0-16.0) g/dl Hct 40 (35-47) % MCV 83 (80-97) fL MCH 28 (27-31) pg MCHC 33 (31-36) g/dl RDW 15 (10.5-15) % Plt Count 316 (150-450) 10^3/ul MPV 8 (7.4-10.4) um3 Neut % (Auto) 59.3 (38-83) % Lymph % (Auto) 29.6 (25-47) % [place] % (Auto) 6.5 (1-9) % Eos % (Auto) 3.4 (0-6) % Baso % (Auto) 1.2 (0-2) % Absolute Neuts (auto) 4.8 (1.5-7.7) 10^3/ul Absolute Lymphs (auto) 2.4 (1.0-4.8) 10^3/ul Absolute Monos (auto) 0.5 (0-0.8) 10^3/ul Absolute Eos (auto) 0.3 (0-0.6) 10^3/ul Absolute Basos (auto) 0.1 (0-0.2) 10^3/ul Absolute Nucleated RBC 0.01 10^3/ul Nucleated RBC % 0.1 Sodium 136 (133-145) mmol/L Potassium 3.6 (3.5-5.0) mmol/L Chloride 105 (101-111) mmol/L Carbon Dioxide 22 (22-32) mmol/L Anion Gap 9 (2-11) mmol/L BUN 14 (6-24) mg/dL Creatinine 0.93 (0.51-0.95) mg/dL Est GFR ( Amer) 81.4 (>60) Est GFR (Non-Af Amer) 63.3 (>60) BUN/Creatinine Ratio 15.1 (8-20) Glucose 162 H (70-100) mg/dL Lactic Acid (0.5-2.0) mmol/L Calcium 9.2 (8.6-10.3) mg/dL Magnesium 2.0 (1.9-2.7) mg/dL Total Bilirubin 0.30 (0.2-1.0) mg/dL AST 15 (13-39) U/L ALT 14 (7-52) U/L Alkaline Phosphatase 85 (34-104) U/L Total Creatine Kinase 97 (10-223) U/L C-Reactive Protein 6.50 H (< 5.00) mg/L Total Protein 7.6 (6.4-8.9) g/dL Albumin 4.3 (3.2-5.2) g/dL Globulin 3.3 (2-4) g/dL Albumin/Globulin Ratio 1.3 (1-3) Beta HCG, Quant 1.12 mIU/mL Urine Color Straw Urine Appearance Clear Urine pH 6.0 (5-9) Ur Specific [place] 1.005 L (1.010-1.030) Urine Protein Negative (Negative) Urine Ketones Negative (Negative) Urine Blood Negative (Negative) Urine Nitrate Negative (Negative) Urine Bilirubin Negative (Negative) Urine Urobilinogen Negative (Negative) Ur Leukocyte Esterase Negative (Negative) Urine Glucose Negative (Negative) 05/23/17 Range/Units 15:41 WBC (3.5-10.8) 10^3/ul RBC (4.0-5.4) 10^6/ul Hgb (12.0-16.0) g/dl Hct (35-47) % MCV (80-97) fL MCH (27-31) pg MCHC (31-36) g/dl RDW (10.5-15) % Plt Count (150-450) 10^3/ul MPV (7.4-10.4) um3 Neut % (Auto) (38-83) % Lymph % (Auto) (25-47) % [place] % (Auto) (1-9) % Eos % (Auto) (0-6) % Baso % (Auto) (0-2) % Absolute Neuts (auto) (1.5-7.7) 10^3/ul Absolute Lymphs (auto) (1.0-4.8) 10^3/ul Absolute Monos (auto) (0-0.8) 10^3/ul Absolute Eos (auto) (0-0.6) 10^3/ul Absolute Basos (auto) (0-0.2) 10^3/ul Absolute Nucleated RBC 10^3/ul Nucleated RBC % Sodium (133-145) mmol/L Potassium (3.5-5.0) mmol/L Chloride (101-111) mmol/L Carbon Dioxide (22-32) mmol/L Anion Gap (2-11) mmol/L BUN (6-24) mg/dL Creatinine (0.51-0.95) mg/dL Est GFR ( Amer) (>60) Est GFR (Non-Af Amer) (>60) BUN/Creatinine Ratio (8-20) Glucose (70-100) mg/dL Lactic Acid 1.6 (0.5-2.0) mmol/L Calcium (8.6-10.3) mg/dL Magnesium (1.9-2.7) mg/dL Total Bilirubin (0.2-1.0) mg/dL AST (13-39) U/L ALT (7-52) U/L Alkaline Phosphatase (34-104) U/L Total Creatine Kinase (10-223) U/L C-Reactive Protein (< 5.00) mg/L Total Protein (6.4-8.9) g/dL Albumin (3.2-5.2) g/dL Globulin (2-4) g/dL Albumin/Globulin Ratio (1-3) Beta HCG, Quant mIU/mL Urine Color Urine Appearance Urine pH (5-9) Ur Specific [place] (1.010-1.030) Urine Protein (Negative) Urine Ketones (Negative) Urine Blood (Negative) Urine Nitrate (Negative) Urine Bilirubin (Negative) Urine Urobilinogen (Negative) Ur Leukocyte Esterase (Negative) Urine Glucose (Negative) Result Diagrams: 05/23/17 15:41 05/23/17 15:41 Lab Statement: Any lab studies that have been ordered have been reviewed, and results considered in the medical decision making process. Back Pain Course/Dx - Course Course Of Treatment: Patient evaluated for stone and UTI with UA and CT. IMPRESSION: STABLE NONOBSTRUCTING LEFT RENAL CALYCEAL STONE. NO HYDRONEPHROSIS. Physical exam + for right sided CVA tenderness and worse with flip test and striaght leg raise. During the course of treatment, patient is given Toradol 30mg without effect. Flexeril PO tried after confirmation of no stone and pain thought to be more muscular. Pain did not improve. Morphine 2mg x 2 given with little effect. No other source of pain or injury is identified. D/t multiple CT abd/pelvis without additional findings inthe past , will defer that test at this time. Ro's negative, no groin pain. No rash , abscess or vesicles noted over side body. Spoke with attending Dr. Collins who suggested some pain medication for home and return if symptoms persist. Provider discussed treatment options with the patient. She prefers to take her at home temazepam. She has been given multiple narcotics per ISTOP in the previous months. I explained to the patient I do not feel comfortable giving her more pain medications for several days for an unknown pain, however she is wanting to stay for IV pain medications if not given orals at home. I have discussed the limitations on a controlled substance and willing to give her 2 days worth of pain management and for her to follow up with her PCP. She is OK with plan and will follow up this week. I have given her conservative pain management instructions for back pain. - Diagnoses Differential Diagnosis/HQI/PQRI: Positive: Herniated Disc, Strain, Sprain, Other - UTI, renal colic Provider Diagnoses: Right flank discomfort Discharge - Discharge Plan Condition: Stable Disposition: HOME Prescriptions: HYDROcodone/ACETAMIN 5-325 MG* [[place] 5-325 TAB*] 1 tab PO Q4H PRN #12 tab MDD 6 PRN Reason: Pain Patient Education Materials: Flank Pain (ED) Referrals: Heath Reyes MD [Primary Care Provider] - Additional Instructions: As discussed, we will try the pain management Only use if symptoms are not improved with 600mg ibuprofen three times daily Moist heat to the area as much as possible If symptoms persist, return to the ED as soon as possible
[2017-05-23 20:39] VITALS: BP 121/67
== END 2017-05-23 20:38 | disposition home or self-care (01) ==
LOC: ED 12:45
DX: R10.84 Generalized abdominal pain (principal); Z86.79 Personal history of other diseases of the circulatory system; E11.9 Type 2 diabetes mellitus without complications
CPT/HCPCS: 36415; 74176; 80053; 81003; 82550; 83605; 83735; 84702; 85025; 86140; 96374; 96375; 99283; A9270-GY; J1885; J2270

== ENCOUNTER 2017-06-12 10:38 | Emergency (ER) | payer MEDICARE ==
[2017-06-12] MEDS ORDERED: Ketorolac INJ* 30 MG/ML 1 ML VIAL IV PUSH ONE (13:33)
[2017-06-12] MEDS ORDERED: ceFAZolin 1 GM ADVAN(*) 1 GM in NS 0.9% 50 ML* 50 ML IVPB ONE (13:36)
--- NOTE | 2017-06-12 13:45 | ED ---
Skin Complaint - HPI Summary HPI Summary: 51 female presents to ED with complaints of a tender rash to left periorbital/ cheek area that began yesterday morning and has been worsening since. Patient states the it is very painful, red and warm. States she had a cold which including, coughing, stuffy nose, sinus pressure, headache, fever/chills and mild sore throat a few days ago. However these symptoms have seemed to improve and now she has developed this facial rash. Denies any dental pain/problems with infection. Admits to subjective fever/chills. Took tylenol yesterday but has not taken anything today. Denies rash anywhere else. No vision changes or loss. No itching of eyes or photophobia. Admits to tearing discharge. Started in corner of eyes and spread down. Denies any new foods/medications. Is not aware of bug bite or sting. No recent trauma or injury. No other complaints. Denies difficulty breathing, throat swelling, chest pain and MRSA history. PMHx significant for Crohns, HTN, hypercholesterolemia, and type II diabetes. Has not been in [facility] recently. - History of Current Complaint Chief Complaint: EDGeneral Time Seen by Provider: 06/12/17 11:38 Stated Complaint: LT EYE SWELLING/RED Hx Obtained From: Patient Hx Last Menstrual Period: IUD - NO PERIODS Onset/Duration: Started Days Ago - yesterday, Still Present, Worse Since Skin Exposure Onset/Duration: Days Ago - 1 Timing: Constant Onset Severity: Mild Current Severity: Moderate Pain Intensity: 7 Pain Scale Used: 0-10 Numeric Skin Location: Face - over cheeks, inferior periorbital area Character: Swelling, Pain, Redness Aggravating Symptom(s): Nothing Alleviating Symptom(s): Nothing Associated Signs & Symptoms: Negative - Additional Pertinent History Primary Care Physician: [id number] - Allergy/Home Medications Allergies/Adverse Reactions: Allergies Allergy/AdvReac Type Severity Reaction Status Date / Time Heparin Allergy Severe Swelling Verified 01/10/17 13:29 Hydromorphone [From Dilaudid] Allergy Severe Rash Verified 01/10/17 13:29 Fentanyl Allergy Rash Verified 01/10/17 13:29 Piperacillin [From Zosyn] AdvReac Severe Decreased Verified 01/10/17 13:29 WBC Sumatriptan [From Imitrex] AdvReac Severe Heart races Verified 01/10/17 13:29 Tazobactam [From Zosyn] AdvReac Severe Decreased Verified 01/10/17 13:29 WBC Morphine AdvReac Intermediate Itching Verified 01/10/17 13:29 Clindamycin AdvReac See Comment Verified 01/10/17 13:29 PMH/Surg Hx/FS Hx/Imm Hx Endocrine/Hematology History: Reports: Hx Diabetes Denies: Hx Anticoagulant Therapy, Hx Thyroid Disease Cardiovascular History: Reports: Hx Hypertension Denies: Hx Pacemaker/ICD Respiratory History: Denies: Hx Asthma, Hx Chronic Obstructive Pulmonary Disease (COPD), Other Respiratory Problems/Disorders GI History: Reports: Hx Crohn's Disease, Hx Gastroesophageal Reflux Disease Denies: Hx Ulcer Musculoskeletal History: Reports: Hx Arthritis - LOWER BACK Sensory History: Reports: Hx Contacts or Glasses Denies: Hx Hearing Aid Opthamlomology History: Reports: Hx Contacts or Glasses Psychiatric History: Reports: Hx Anxiety, Hx Depression Denies: Hx Panic Disorder, Hx of Violent Episodes Against Others - Cancer History Hx Chemotherapy: No Hx Radiation Therapy: No - Surgical History Surgery Procedure, Year, and Place: Appendectomy,. left foot tendon repair,. Gallbladder,. hernia repair,. bilateral carpal tunnel,. tonsilectomy,. Tendon repair L foot , Hx Anesthesia Reactions: No - Immunization History Immunizations Up to Date: Yes Infectious Disease History: No Infectious Disease History: Reports: Hx Shingles - 2014 Denies: Hx Clostridium Difficile, Hx Hepatitis, Hx Human Immunodeficiency Virus (HIV), Hx of Known/Suspected MRSA, Hx Tuberculosis, Hx Known/Suspected VRE , Hx Known/Suspected VRSA, History Other Infectious Disease, Traveled Outside the [place] in Last 30 Days - Family History Known Family History: Positive: Cardiac Disease, Hypertension, Diabetes - Social History Alcohol Use: Occasionally Hx Substance Use: No Substance Use Type: Reports: None Hx Tobacco Use: No Smoking Status (MU): Never Smoked Tobacco Review of Systems Positive: Fever, Chills - subjective Positive: Drainage - tearing left eye Positive: Sore Throat - resolved, Nasal Discharge Cardiovascular: Negative Positive: Cough - resolved Gastrointestinal: Negative Musculoskeletal: Negative Positive: Rash Positive: Headache All Other Systems Reviewed And Are Negative: Yes Physical Exam Triage Information Reviewed: Yes Vital Signs On Initial Exam: Initial Vitals Temp Pulse Resp BP Pulse Ox 96.4 F 104 14 105/68 98 06/12/17 10:52 06/12/17 10:52 06/12/17 10:52 06/12/17 10:52 06/12/17 10:52 Vital Signs Reviewed: Yes Appearance: Positive: Well-Appearing, Well-Nourished, Pain Distress - moderate with movement of left cheek and on palpation Skin: Positive: Warm, Skin Color Reflects Adequate Perfusion, Dry, Soft, Erythema @ - around tear troughand malar area of left side, beginnings noted on right tear trough/periorbital area beginning at caruncle of b/l eyes, rash is inferior to b/l eyes not involving lid. tender to touch, warm to touch, firm to touch, and non blanchable. no palpable abscess and no discharge., Other - rest of skin exam normal, without rash. Negative: Cold, Numb, Cyanosis @, Pale Head/Face: Positive: Normal Head/Face Inspection - other than rash noted above on malar area, Other - no signs of trauma. Negative: TMJ Tenderness, Scalp Eyes: Positive: EOMI - no pain with EOMI, JAIME, Conjunctiva Clear, Other: - no FB and normal exam and visual acuity of b/l eyes. Negative: Conjunctiva Inflammed, Discharge ENT: Positive: Normal ENT inspection, Hearing grossly normal, Pharynx normal, TMs normal. Negative: Trismus, Muffled/hoarse voice Dental: Positive: Percussion Tenderness @ - maxillary, Cervical Lymphadenopathy - b/l Neck: Positive: Supple, Nontender Respiratory/Lung Sounds: Positive: Clear to Auscultation, Breath Sounds Present. Negative: Decreased Breath Sounds, Rales, Rhonchi, Wheezes Cardiovascular: Positive: Normal, RRR, Pulses are Symmetrical in both Upper and Lower Extremities. Negative: Murmur, Rub Abdomen Description: Positive: Nontender, Soft Bowel Sounds: Positive: Present Musculoskeletal: Positive: Normal, Strength/ROM Intact Neurological: Positive: Normal, Sensory/Motor Intact, Alert, Oriented to Person Place, Time, CN Intact II-III, NV Bundle Intact Distally, Facial Symmetry, Speech Normal. Negative: Facial Droop, Slurred Speech Psychiatric: Positive: Affect/Mood Appropriate - [place] Coma Scale Coma Scale Total: 15 Diagnostics - Vital Signs Vital Signs Temp Pulse Resp BP Pulse Ox 06/12/17 12:11 96.4 F 104 14 105/68 98 06/12/17 10:52 96.4 F 104 14 105/68 98 - Laboratory Result Diagrams: 06/12/17 14:05 06/12/17 14:05 Lab Statement: Any lab studies that have been ordered have been reviewed, and results considered in the medical decision making process. - CT maxillofacial CT Interpretation: Positive (See Comments) - 1. MILD INFLAMMATORY CHANGE OF THE LEFT MAXILLARY 16 IS FAT. NO LOCULATED FLUID COLLECTION TO SUGGEST ABSCESS. 2. ENLARGED LEFT LEVEL [address] Interpretation Completed By: Radiologist Re-Evaluation - Re-Evaluation First Eval Re-Evaluation Time: 14:40 Change: Unchanged - did not have much relief from toradol Second Eval Re-Evaluation Time: 16:00 Change: Improved - had relief after morphine, updated on lab and imaging results. updated on plan of action. patient understands and agrees. Course/Dx - Course Course Of Treatment: CBC, CMP and lactic obtained to rule out sepsis. blood cultures also obtained. slightly elevated lactic however normal on repeat, and slightly elevated WBC without left shift. Given toradol and morphiine for pain managment and dose of cefazolin IV and bactrim po. CT maxillofacial obtained to rule out underlying abscess or sinus complication. Appears to be suffering from a cellulitis due to recent URI. Will treat with pain management and antitbiotics. Flonase for nasal congestion. Saline rinses, salt water gargles, cool/warm compresses. Hot showers. Keep clean and dry. No drainage able to culture. No MRSA history. Follow up PCP. Aware of worsening signs and symptoms to watch out for. Does not appear to be any other emergent etiology other than a cellulitis. Patient does have Diabetes and crohns. Ruled out sepsis and no concern for other rash etiologies/immune disorder etiology due to HPI, PE findings and lab/imaging results. Will be given bactrim and keflex. pain management. istop reference#: [id number]. drink fluids. - Differential Diagnoses - Skin Complaint Differential Diagnoses: Abscess, Angioedema, Cellulitis, Contact Dermatitis, Eczema, Local Allergic Reaction, MRSA, Urticaria, Viral Exanthem - Diagnoses Provider Diagnoses: Cellulitis of face - Physician Notifications Discussed Care Of Patient With: Dr Friedman Discharge - Discharge Plan Condition: Improved Disposition: HOME Prescriptions: Cephalexin CAP* [Keflex CAP*] 500 mg PO TID #30 cap Fluticasone NASAL SPRAY 50MCG* [Flonase NASAL SPRAY 50MCG*] 2 spray BOTH NARES DAILY #1 btl HYDROcodone/ACETAMIN 5-325 MG* [[place] 5-325 TAB*] 1 tab PO Q6H PRN #6 tab MDD 2 PRN Reason: Pain Sulfamethox/Trimethoprim DS* [Bactrim DS 800/160 TAB*] 1 tab PO BID #19 tab Patient Education Materials: Cellulitis (ED) Referrals: Heath Reyes MD [Primary Care Provider] - Additional Instructions: Take prescribed antibiotics as directed. Take one keflex before bedtime and then continue as prescribed starting tomorrow. Pain medication as needed, supplement with ibuprofen in between to also help with pain and inflammation. Cool/warm compresses. Swish with salt water, saline nasal rinses and flonase for nasal congestion. Follow up and have re-checked with PCP within 3 days. If symptoms worsen or do not improve please seek medical attention promptly, as discussed (fever, worsening swelling/redness, feeling ill, nausea).
[2017-06-12 14:31] LABS: Hematocrit 41 % (35-47); Hemoglobin 13.8 g/dl (12.0-16.0); Mean Corpuscular HGB Conc 34 g/dl (31-36); Mean Corpuscular Hemoglobin 28 pg (27-31); Mean Corpuscular Volume 82 fL (80-97); Mean Platelet Volume 8 um3 (7.4-10.4); Red Blood Count 4.99 10^6/ul (4.0-5.4); Red Cell Distribution Width 15 % (10.5-15); White Blood Count 11.5 10^3/ul (3.5-10.8)
[2017-06-12 14:41] LABS: Albumin 4.6 g/dL (3.2-5.2); BUN/Creatinine Ratio 7.1 (8-20); Calcium 9.6 mg/dL (8.6-10.3); EGFR African American 76.6 (>60); EGFR Non-African American 59.6 (>60); Globulin 3.6 g/dL (2-4); Potassium 3.4 mmol/L (3.5-5.0); Total Bilirubin 0.3 mg/dL (0.2-1.0); Total Protein 8.2 g/dL (6.4-8.9)
[2017-06-12] MEDS ORDERED: Iodixanol* (CONTRAST) 320 MG/ML 100 ML SDV IV ONE (14:44)
--- NOTE | 2017-06-12 15:23 | RAD ---
HISTORY: Maxillary cellulitis, rule out abscess COMPARISONS: None TECHNIQUE: Multiple contiguous axial CT scans were obtained of the face with intravenous contrast, with coronal and sagittal multiplanar reformations. FINDINGS: BONES: There is no displaced fracture or dislocation. The orbital rim is intact. The zygomatic arch is intact. The pterygoid plates are intact. ORBITS: The globes are round. The optic nerves are symmetric. The extraocular musculature is normal. There is no post septal or intraconal inflammatory change. There is no retrobulbar hematoma. PARANASAL SINUSES: The paranasal sinuses are clear. BRAIN AND SOFT TISSUE: There is mild stranding of the subcutis fat along the left maxillary eminence. There is no loculated fluid collection to suggest abscess. OTHER: There is a 1.4 cm short axis left level 2 lymph node. There are mildly prominent upper cervical lymph nodes bilaterally. IMPRESSION: 1. MILD INFLAMMATORY CHANGE OF THE LEFT MAXILLARY 16 IS FAT. NO LOCULATED FLUID COLLECTION TO SUGGEST ABSCESS. 2. ENLARGED LEFT LEVEL 2 LYMPH NODE
[2017-06-12] MEDS ORDERED: Morphine INJ* 4 MG/ML 1 ML CARPUJECT IV ONE (15:33)
[2017-06-12] MEDS ORDERED: Sulfamethox/Trimethoprim DS 800/160* TAB PO ONE (16:03)
[2017-06-12 16:59] VITALS: BP 108/64
== END 2017-06-12 16:58 | disposition home or self-care (01) ==
LOC: ED 10:38
DX: L03.211 Cellulitis of face (principal); R21 Rash and other nonspecific skin eruption; J02.9 Acute pharyngitis, unspecified; R50.9 Fever, unspecified
CPT/HCPCS: 36415; 70487; 80053; 83605; 85025; 87040; 96374; 96375; 99282; A9270-GY; J0690; J1885; J2270; Q9967

== ENCOUNTER 2017-06-13 14:07 | Emergency (ER) | payer MEDICARE ==
[2017-06-13] MEDS ORDERED: NS 0.9% 1000 ML* 1,000 ML IV ONE (16:26)
[2017-06-13 16:47] LABS: Hematocrit 40 % (35-47); Hemoglobin 13.2 g/dl (12.0-16.0); Mean Corpuscular HGB Conc 33 g/dl (31-36); Mean Corpuscular Hemoglobin 27 pg (27-31); Mean Corpuscular Volume 83 fL (80-97); Mean Platelet Volume 8 um3 (7.4-10.4); Red Blood Count 4.83 10^6/ul (4.0-5.4); Red Cell Distribution Width 15 % (10.5-15)
[2017-06-13 17:13] LABS: Albumin 4.3 g/dL (3.2-5.2); BUN/Creatinine Ratio 6.1 (8-20); C Reactive Protein 67.32 mg/L (< 5.00); Calcium 9.5 mg/dL (8.6-10.3); EGFR African American 63.7 (>60); EGFR Non-African American 49.6 (>60); Globulin 3.5 g/dL (2-4); Potassium 3.2 mmol/L (3.5-5.0); Total Bilirubin 0.3 mg/dL (0.2-1.0); Total Protein 7.8 g/dL (6.4-8.9)
[2017-06-13] MEDS ORDERED: HYDROcodone/ACETAMIN 5-325 MG* 1 TAB PO ONE (18:00)
[2017-06-13 18:07] VITALS: BP 113/67
--- NOTE | 2017-06-13 20:34 | ED ---
Lisseth Benítez Thomas, scribed for Hilton Ramirez MD on 06/13/17 at 1633 . Skin Complaint - HPI Summary HPI Summary: The patient is a 51 y/o F who presents to the ED with an erythematous and swollen region to bilateral infraorbital and left cheeks that she first noticed three days ago. She was a patient at [facility] yesterday and was treated by JULIAN Prajapati, and the patient was diagnosed with cellulitis and given IV Abx as well as Keflex and Bactrim that she took today. The patient reports that her erythematous region has spread since her visit yesterday. She has been taking her Abx as directed today and yesterday. She has pruritus and pain to the area. She rates her pain 7/10 and she says that the area is tender to the touch. She has one prior episode of cellulitis that required surgery. - History of Current Complaint Chief Complaint: EDGeneral Time Seen by Provider: 06/13/17 15:57 Stated Complaint: REDNESS ON FACE Hx Obtained From: Patient Hx Last Menstrual Period: IUD - NO PERIODS Onset/Duration: Started Days Ago - 3 days, Still Present Timing: Constant Current Severity: Severe Pain Intensity: 7 Pain Scale Used: 0-10 Numeric Skin Location: Other: - Bilateral cheeks and left infraorbit Character: Pain, Painful Aggravating Symptom(s): Touch Alleviating Symptom(s): Nothing Associated Signs & Symptoms: Negative Related History: Other: - Was a patient at [facility] yesterday and seen by JULIAN Prajapati - Additional Pertinent History Primary Care Physician: [id number] - Allergy/Home Medications Allergies/Adverse Reactions: Allergies Allergy/AdvReac Type Severity Reaction Status Date / Time Heparin Allergy Severe Swelling Verified 06/13/17 14:11 Hydromorphone [From Dilaudid] Allergy Severe Rash Verified 06/13/17 14:11 Fentanyl Allergy Rash Verified 06/13/17 14:11 Piperacillin [From Zosyn] AdvReac Severe Decreased Verified 06/13/17 14:11 WBC Sumatriptan [From Imitrex] AdvReac Severe Heart races Verified 06/13/17 14:11 Tazobactam [From Zosyn] AdvReac Severe Decreased Verified 06/13/17 14:11 WBC Morphine AdvReac Intermediate Itching Verified 06/13/17 14:11 Clindamycin AdvReac See Comment Verified 06/13/17 14:11 PMH/Surg Hx/FS Hx/Imm Hx Previously Healthy: No Endocrine/Hematology History: Reports: Hx Diabetes Denies: Hx Anticoagulant Therapy, Hx Thyroid Disease Cardiovascular History: Reports: Hx Hypertension Denies: Hx Pacemaker/ICD Respiratory History: Denies: Hx Asthma, Hx Chronic Obstructive Pulmonary Disease (COPD), Other Respiratory Problems/Disorders GI History: Reports: Hx Crohn's Disease, Hx Gastroesophageal Reflux Disease Denies: Hx Ulcer Musculoskeletal History: Reports: Hx Arthritis - LOWER BACK Sensory History: Reports: Hx Contacts or Glasses Denies: Hx Hearing Aid Opthamlomology History: Reports: Hx Contacts or Glasses Psychiatric History: Reports: Hx Anxiety, Hx Depression Denies: Hx Panic Disorder, Hx of Violent Episodes Against Others - Cancer History Hx Chemotherapy: No Hx Radiation Therapy: No - Surgical History Surgery Procedure, Year, and Place: Appendectomy,. left foot tendon repair,. Gallbladder,. hernia repair,. bilateral carpal tunnel,. tonsilectomy,. Tendon repair L foot , Hx Anesthesia Reactions: No - Immunization History Date of Tetanus Vaccine: UTD Date of Influenza Vaccine: NO Infectious Disease History: No Infectious Disease History: Reports: Hx Shingles - 2014 Denies: Hx Clostridium Difficile, Hx Hepatitis, Hx Human Immunodeficiency Virus (HIV), Hx of Known/Suspected MRSA, Hx Tuberculosis, Hx Known/Suspected VRE , Hx Known/Suspected VRSA, History Other Infectious Disease, Traveled Outside the [place] in Last 30 Days - Family History Known Family History: Positive: Cardiac Disease, Hypertension, Diabetes - Social History Alcohol Use: Occasionally Hx Substance Use: No Substance Use Type: Reports: None, Prescribed Hx Tobacco Use: No Smoking Status (MU): Never Smoked Tobacco Review of Systems Negative: Fever Positive: Other - POS: swollen, erythamtous region to bilateral cheeks and infraorbit that is painful and itchy All Other Systems Reviewed And Are Negative: Yes Physical Exam Triage Information Reviewed: Yes Vital Signs On Initial Exam: Initial Vitals Temp Pulse Resp BP Pulse Ox 96.8 F 104 20 107/57 98 06/13/17 14:11 06/13/17 14:11 06/13/17 14:11 06/13/17 14:11 06/13/17 14:11 Vital Signs Reviewed: Yes Appearance: Positive: Well-Appearing, No Pain Distress, Well-Nourished Skin: Positive: Warm, Skin Color Reflects Adequate Perfusion, Dry, Other - There is an erythematous blanching region to bilateral cheeks but more to the right. It is blanching, warm to the touch, and tender. Head/Face: Positive: Normal Head/Face Inspection Eyes: Positive: Normal ENT: Positive: Normal ENT inspection Neck: Positive: Supple, Nontender Respiratory/Lung Sounds: Positive: Clear to Auscultation, Breath Sounds Present Cardiovascular: Positive: RRR Abdomen Description: Positive: Nontender, Soft Bowel Sounds: Positive: Present Musculoskeletal: Positive: Normal Neurological: Positive: Normal Psychiatric: Positive: Normal, Affect/Mood Appropriate - Joy Coma Scale Coma Scale Total: 15 Diagnostics - Vital Signs Vital Signs Temp Pulse Resp BP Pulse Ox 06/13/17 16:00 105 108/63 98 06/13/17 15:41 97.8 F 99 16 122/57 98 06/13/17 15:34 101 98 06/13/17 15:31 122/57 06/13/17 14:11 96.8 F 104 20 107/57 98 - Laboratory Lab Results: Lab Results 06/13/17 06/13/17 06/13/17 Range/Units 16:37 16:37 16:37 WBC 9.0 (3.5-10.8) 10^3/ul RBC 4.83 (4.0-5.4) 10^6/ul Hgb 13.2 (12.0-16.0) g/dl Hct 40 (35-47) % MCV 83 (80-97) fL MCH 27 (27-31) pg MCHC 33 (31-36) g/dl RDW 15 (10.5-15) % Plt Count 304 (150-450) 10^3/ul MPV 8 (7.4-10.4) um3 Neut % (Auto) 71.6 (38-83) % Lymph % (Auto) 15.3 L (25-47) % [place] % (Auto) 9.2 H (1-9) % Eos % (Auto) 2.9 (0-6) % Baso % (Auto) 1.0 (0-2) % Absolute Neuts (auto) 6.5 (1.5-7.7) 10^3/ul Absolute Lymphs (auto) 1.4 (1.0-4.8) 10^3/ul Absolute Monos (auto) 0.8 (0-0.8) 10^3/ul Absolute Eos (auto) 0.3 (0-0.6) 10^3/ul Absolute Basos (auto) 0.1 (0-0.2) 10^3/ul Absolute Nucleated RBC 0 10^3/ul Nucleated RBC % 0 Sodium 139 (133-145) mmol/L Potassium 3.2 L (3.5-5.0) mmol/L Chloride 107 (101-111) mmol/L Carbon Dioxide 23 (22-32) mmol/L Anion Gap 9 (2-11) mmol/L BUN 7 (6-24) mg/dL Creatinine 1.15 H (0.51-0.95) mg/dL Est GFR ( Amer) 63.7 (>60) Est GFR (Non-Af Amer) 49.6 (>60) BUN/Creatinine Ratio 6.1 L (8-20) Glucose 134 H (70-100) mg/dL Lactic Acid 1.7 (0.5-2.0) mmol/L Calcium 9.5 (8.6-10.3) mg/dL Total Bilirubin 0.30 (0.2-1.0) mg/dL AST 77 H (13-39) U/L ALT 62 H (7-52) U/L Alkaline Phosphatase 142 H (34-104) U/L C-Reactive Protein 67.32 H (< 5.00) mg/L Total Protein 7.8 (6.4-8.9) g/dL Albumin 4.3 (3.2-5.2) g/dL Globulin 3.5 (2-4) g/dL Albumin/Globulin Ratio 1.2 (1-3) Result Diagrams: 06/13/17 16:37 06/13/17 16:37 Lab Statement: Any lab studies that have been ordered have been reviewed, and results considered in the medical decision making process. Course/Dx - Course Course Of Treatment: Ms. Chiang was cocerned that her cellulitis was spreading in spite of antibiotics and returned. Her Wbc's had normalized and she was afeb with normal vitals so I think the antibiotics are working. Her lever enzymes were slightly bumped and I recommended she stop the Bactrim and continue Keflex. She needs close F/U. - Diagnoses Provider Diagnoses: Facial cellulitis Discharge - Discharge Plan Condition: Stable Disposition: HOME Patient Education Materials: Cellulitis (ED) Referrals: Heath Reyes MD [Primary Care Provider] - 2 Days Additional Instructions: Stop taking Bactrim. Follow up with Dr. Reyes in the next two days or return here. Return to the emergency room for changing or worsening symptoms. The documentation as recorded by the Lisseth quiñonez Thomas accurately reflects the service I personally performed and the decisions made by me, Hilton Ramirez MD.
== END 2017-06-13 18:09 | disposition home or self-care (01) ==
LOC: ED 14:07
DX: L03.211 Cellulitis of face (principal); E11.9 Type 2 diabetes mellitus without complications
CPT/HCPCS: 36415; 80053; 83605; 85025; 86140; 96360; 99282

== ENCOUNTER 2017-06-20 14:45 | Emergency (ER) | payer MEDICARE ==
[2017-06-20] MEDS ORDERED: Famotidine IV* 10 MG/ML 2 ML (20 mg) IV ONE (15:18)
[2017-06-20] MEDS ORDERED: NS 0.9% 1000 ML* 2,000 ML IV ONE (15:18)
[2017-06-20 16:12] LABS: Hematocrit 40 % (35-47); Hemoglobin 13.1 g/dl (12.0-16.0); Mean Corpuscular HGB Conc 33 g/dl (31-36); Mean Corpuscular Hemoglobin 27 pg (27-31); Mean Corpuscular Volume 82 fL (80-97); Mean Platelet Volume 8 um3 (7.4-10.4); Red Blood Count 4.82 10^6/ul (4.0-5.4); Red Cell Distribution Width 15 % (10.5-15); White Blood Count 12.1 10^3/ul (3.5-10.8)
[2017-06-20] MEDS ORDERED: Ondansetron INJ* 2 MG/ML VIAL IV ONE (16:16)
[2017-06-20] MEDS ORDERED: Ondansetron INJ* 2 MG/ML VIAL ONE (16:17)
[2017-06-20 16:35] LABS: Albumin 4.3 g/dL (3.2-5.2); BUN/Creatinine Ratio 9.3 (8-20); C Reactive Protein 4.97 mg/L (< 5.00); Calcium 9.7 mg/dL (8.6-10.3); EGFR African American 89.1 (>60); EGFR Non-African American 69.3 (>60); Globulin 3.7 g/dL (2-4); Potassium 3.3 mmol/L (3.5-5.0); Total Bilirubin 0.3 mg/dL (0.2-1.0)
[2017-06-20] MEDS ORDERED: Potassium Chlor TAB* 20 MEQ TAB.ER PO ONE (16:45)
--- NOTE | 2017-06-20 16:45 | RAD ---
INDICATION: Left lower quadrant pain COMPARISON: Similar examination dated August 08, 2016 TECHNIQUE: Supine and upright views of the abdomen were obtained. FINDINGS: The small bowel and colon appear nondistended. No free intraperitoneal air is seen. Overlying the left renal collecting system there is a 4 mm calcification. Surgical clips in the right upper quadrant consistent with cholecystectomy. Visualized bones are within normal limits for the patient's age. IMPRESSION: No radiographically apparent acute abnormality or change from prior abdominal radiograph.
[2017-06-20 18:30] LABS: Urine Bacteria 1+ (Absent)
[2017-06-20 18:32] LABS: Urine Bilirubin Negative (Negative); Urine Glucose Negative (Negative); Urine Nitrite Negative (Negative)
[2017-06-20 19:24] VITALS: BP 108/47
--- NOTE | 2017-06-21 13:42 | ED ---
Uche Benítez Angela, scribed for Darrion Ugalde MD on 06/20/17 at 1522 . Complex/Multi-Sys Presentation - HPI Summary HPI Summary: This pt is a 51 y/o female presenting to [facility] c/o feeling "jittery" and diarrhea x3 days. Pt reports she is on antibiotics for 8 days now for cellulitis of her face. Pt describes her diarrhea as pure liquid, but denies bloody stools. She states having about 10 episodes a day of diarrhea. She additionally c/o intermittent abd cramping and chills. Pt denies fever. PMHx significant for Crohn's disease, HTN, diabetes. Pt is followed up by Dr. Wang (GI ) at [place]. - History Of Current Complaint Chief Complaint: EDGeneral Time Seen by Provider: 06/20/17 15:14 Hx Obtained From: Patient Onset/Duration: Lasting Days Timing: Days Associated Signs And Symptoms: Positive: Diarrhea, Other - jittery, chills, abd cramping. Negative: Nausea, Vomiting, Back Pain, Fever - Allergies/Home Medications Allergies/Adverse Reactions: Allergies Allergy/AdvReac Type Severity Reaction Status Date / Time Heparin Allergy Severe Swelling Verified 06/13/17 14:11 Hydromorphone [From Dilaudid] Allergy Severe Rash Verified 06/13/17 14:11 Fentanyl Allergy Rash Verified 06/13/17 14:11 Piperacillin [From Zosyn] AdvReac Severe Decreased Verified 06/13/17 14:11 WBC Sumatriptan [From Imitrex] AdvReac Severe Heart races Verified 06/13/17 14:11 Tazobactam [From Zosyn] AdvReac Severe Decreased Verified 06/13/17 14:11 WBC Morphine AdvReac Intermediate Itching Verified 06/13/17 14:11 Clindamycin AdvReac See Comment Verified 06/13/17 14:11 PMH/Surg Hx/FS Hx/Imm Hx Endocrine/Hematology History: Reports: Hx Diabetes Denies: Hx Anticoagulant Therapy, Hx Thyroid Disease Cardiovascular History: Reports: Hx Hypertension Denies: Hx Pacemaker/ICD Respiratory History: Denies: Hx Asthma, Hx Chronic Obstructive Pulmonary Disease (COPD), Other Respiratory Problems/Disorders GI History: Reports: Hx Crohn's Disease, Hx Gastroesophageal Reflux Disease Denies: Hx Ulcer Musculoskeletal History: Reports: Hx Arthritis - LOWER BACK Sensory History: Reports: Hx Contacts or Glasses Denies: Hx Hearing Aid Opthamlomology History: Reports: Hx Contacts or Glasses Psychiatric History: Reports: Hx Anxiety, Hx Depression Denies: Hx Panic Disorder, Hx of Violent Episodes Against Others - Cancer History Hx Chemotherapy: No Hx Radiation Therapy: No - Surgical History Surgery Procedure, Year, and Place: Appendectomy,. left foot tendon repair,. Gallbladder,. hernia repair,. bilateral carpal tunnel,. tonsilectomy,. Tendon repair L foot , Hx Anesthesia Reactions: No - Immunization History Date of Tetanus Vaccine: UTD Date of Influenza Vaccine: NO Infectious Disease History: No Infectious Disease History: Reports: Hx Shingles - 2014 Denies: Hx Clostridium Difficile, Hx Hepatitis, Hx Human Immunodeficiency Virus (HIV), Hx of Known/Suspected MRSA, Hx Tuberculosis, Hx Known/Suspected VRE , Hx Known/Suspected VRSA, History Other Infectious Disease, Traveled Outside the [place] in Last 30 Days - Family History Known Family History: Positive: Cardiac Disease, Hypertension, Diabetes - Social History Alcohol Use: Occasionally Hx Substance Use: No Substance Use Type: Reports: None, Prescribed Hx Tobacco Use: No Smoking Status (MU): Never Smoked Tobacco Review of Systems Positive: Chills. Negative: Fever Eyes: Negative ENT: Negative Positive: Abdominal Pain - abd cramping, Diarrhea. Negative: Vomiting, Nausea Genitourinary: Negative All Other Systems Reviewed And Are Negative: Yes Physical Exam - Summary Physical Exam Summary: VITAL SIGNS: Reviewed. GENERAL: Patient is a well-developed and obese female who is lying comfortable in the stretcher. Patient is not in any acute respiratory distress. HEAD AND FACE: Normocephalic and atraumatic. EYES: PERRLA, EOMI x 2, No injected conjunctiva. EARS: Hearing grossly intact. Ear canals and tympanic membranes are WNL. MOUTH: Oropharynx within normal limits. Oral mucosa is dry. NECK: Supple, trachea is midline, no adenopathy, no JVD. CHEST: Symmetric, no tenderness at palpation LUNGS: Clear to auscultation bilaterally. No wheezing or crackles. CVS: RRR, S1 and S2 present, no murmurs or gallops appreciated. ABDOMEN: Soft, non-tender. No signs of distention. Positive bowel sounds. No rebound no guarding, and no masses palpated. No abdominal bruit or pulsations. There is no abdominal tenderness. EXTREMITIES: FROM in all major joints, no edema, no cyanosis or clubbing. NEURO: Alert and oriented x 3. No acute neurological deficits. Speech is normal. SKIN: Dry and warm Triage Information Reviewed: Yes Vital Signs On Initial Exam: Initial Vitals Temp Pulse Resp BP Pulse Ox 98.3 F 87 20 137/76 99 06/20/17 14:46 06/20/17 14:46 06/20/17 14:46 06/20/17 14:46 06/20/17 14:46 Vital Signs Reviewed: Yes Diagnostics - Vital Signs Vital Signs Temp Pulse Resp BP Pulse Ox 06/20/17 14:46 98.3 F 87 20 137/76 99 - Laboratory Lab Results: Lab Results 06/20/17 06/20/17 06/20/17 Range/Units 15:57 15:57 18:06 WBC 12.1 H (3.5-10.8) 10^3/ul RBC 4.82 (4.0-5.4) 10^6/ul Hgb 13.1 (12.0-16.0) g/dl Hct 40 (35-47) % MCV 82 (80-97) fL MCH 27 (27-31) pg MCHC 33 (31-36) g/dl RDW 15 (10.5-15) % Plt Count 334 (150-450) 10^3/ul MPV 8 (7.4-10.4) um3 Neut % (Auto) 67.5 (38-83) % Lymph % (Auto) 23.2 L (25-47) % [place] % (Auto) 6.8 (1-9) % Eos % (Auto) 1.7 (0-6) % Baso % (Auto) 0.8 (0-2) % Absolute Neuts (auto) 8.2 H (1.5-7.7) 10^3/ul Absolute Lymphs (auto) 2.8 (1.0-4.8) 10^3/ul Absolute Monos (auto) 0.8 (0-0.8) 10^3/ul Absolute Eos (auto) 0.2 (0-0.6) 10^3/ul Absolute Basos (auto) 0.1 (0-0.2) 10^3/ul Absolute Nucleated RBC 0.01 10^3/ul Nucleated RBC % 0 Sodium 138 (133-145) mmol/L Potassium 3.3 L (3.5-5.0) mmol/L Chloride 105 (101-111) mmol/L Carbon Dioxide 26 (22-32) mmol/L Anion Gap 7 (2-11) mmol/L BUN 8 (6-24) mg/dL Creatinine 0.86 (0.51-0.95) mg/dL Est GFR ( Amer) 89.1 (>60) Est GFR (Non-Af Amer) 69.3 (>60) BUN/Creatinine Ratio 9.3 (8-20) Glucose 122 H (70-100) mg/dL Calcium 9.7 (8.6-10.3) mg/dL Total Bilirubin 0.30 (0.2-1.0) mg/dL AST 19 (13-39) U/L ALT 22 (7-52) U/L Alkaline Phosphatase 96 (34-104) U/L C-Reactive Protein 4.97 (< 5.00) mg/L Total Protein 8.0 (6.4-8.9) g/dL Albumin 4.3 (3.2-5.2) g/dL Globulin 3.7 (2-4) g/dL Albumin/Globulin Ratio 1.2 (1-3) Amylase 30 (29-103) U/L Lipase 56 (11.0-82.0) U/L Urine Color Colorless Urine Appearance Clear Urine pH 7 (5-9) Ur Specific [place] 1.005 L (1.010-1.030) Urine Protein Negative (Negative) Urine Ketones Negative (Negative) Urine Blood Negative (Negative) Urine Nitrate Negative (Negative) Urine Bilirubin Negative (Negative) Urine Urobilinogen Negative (Negative) Ur Leukocyte Esterase Trace H (Negative) Urine WBC (Auto) Trace(0-5/hpf) (Absent) Urine RBC (Auto) Trace(0-2/hpf) (Absent) Ur Squamous Epith Cells Present H (Absent) Urine Bacteria 1+ H (Absent) Urine Glucose Negative (Negative) Urine Ascorbic Acid Not Reportable Result Diagrams: 06/20/17 15:57 06/20/17 15:57 Lab Statement: Any lab studies that have been ordered have been reviewed, and results considered in the medical decision making process. - Radiology Abdomen XR Xray Interpretation: No Acute Changes - IMPRESSION: No radiographically apparent acute abnormality or change from prior abdominal radiograph. ED physician has reviewed this radiology report and agrees. Radiology Interpretation Completed By: Radiologist - EKG 1519 Cardiac Rate: NL - 80 bpm EKG Rhythm: Sinus Rhythm EKG Interpretation: Q wave at III, avF. Normal axis. EKG Comparison: No Significant Change - Similar to previous EKG on 09/21/15. Complex Multi-Symp Course/Dx Assessment/Plan: This pt is a 51 y/o female presenting to [facility] c/o feeling "jittery" and diarrhea x3 days. Pt reports she is on antibiotics for 8 days now for cellulitis of her face. Pt describes her diarrhea as pure liquid, but denies bloody stools. She states having about 10 episodes a day of diarrhea. She additionally c/o intermittent abd cramping and chills. Pt denies fever. PMHx significant for Crohn's disease, HTN, diabetes. Pt is followed up by Dr. Wang (GI) at [place]. Test results are without any significant abnormalities except for WBC 12.1, potassium of 3.3. UA is contaminated. In the ED course, the pt was given IV fluids for hydration, Pepcid for the bloating, and Zofran for nausea. After these medications were given, the symptoms resolved. XR of the abdomen is negative for acute pathology. The pt was not able to give a stool sample, as the diarrhea had stopped. The pt is able to tolerate PO intake without any nausea or vomiting. Since the pt is feeling better, the pt will be discharged with follow up of her PCP. Pt is hemodynamically stable, alert and oriented x3. - Diagnoses Differential Diagnoses/HQI/PQRI: Other - Abdominal pain, colitis, diverticulitis , Gastritis Provider Diagnoses: Nausea, vomiting and diarrhea Discharge - Discharge Plan Condition: Stable Disposition: HOME Patient Education Materials: Acute Diarrhea (ED), Acute Nausea and Vomiting (ED ) Referrals: Heath Reyes MD [Primary Care Provider] - 3 Days Additional Instructions: Please follow up with your primary care provider. The documentation as recorded by the Uche quiñonez Angela accurately reflects the service I personally performed and the decisions made by , Darrion Ugalde MD.
== END 2017-06-20 19:41 | disposition home or self-care (01) ==
LOC: ED 14:45
DX: R19.7 Diarrhea, unspecified (principal); R11.2 Nausea with vomiting, unspecified; R68.83 Chills (without fever)
CPT/HCPCS: 36415; 74020; 80053; 81003; 81015; 82150; 83690; 85025; 86140; 87086; 93005; 96374; 96375; 99283; A9270-GY; J2405